=== PATIENT | female | born 1980 | race Caucasian/White ===

== ENCOUNTER 2019-07-19 08:56 | Outpatient (CLI) | payer MEDICARE, MEDICAID, SELFPAY | END 2019-07-19 08:57 | disposition home or self-care (01) | LOC: ONCMED 09:03 | PROVIDERS: Family Provider Nurse Practitioner Family; PCP Nurse Practitioner Family; Visit Provider Internal Medicine Hematology & Oncology | DX: Z45.2 Encounter for adjustment and management of vascular access device (principal) | CPT/HCPCS: 96523 ==

== ENCOUNTER 2019-08-16 08:56 | Outpatient (CLI) | payer MEDICARE, MEDICAID, SELFPAY | END 2019-08-16 08:57 | disposition home or self-care (01) | LOC: ONCMED 08:58 | PROVIDERS: Family Provider Nurse Practitioner Family; PCP Nurse Practitioner Family; Visit Provider Internal Medicine Hematology & Oncology | DX: Z45.2 Encounter for adjustment and management of vascular access device (principal) | CPT/HCPCS: 96523 ==

== ENCOUNTER → 2019-09-11 09:06 | Outpatient (BNVA) | payer MEDICARE, MEDICAID, SELFPAY | PROVIDERS: Family Provider Nurse Practitioner Family; PCP Nurse Practitioner Family; Visit Provider Internal Medicine Hematology & Oncology | DX: C50.411 Malignant neoplasm of upper-outer quadrant of right female breast (principal); D70.1 Agranulocytosis secondary to cancer chemotherapy; T45.1X5A Adverse effect of antineoplastic and immunosuppressive drugs, initial encounter | CPT/HCPCS: 80053; 85025 ==

== ENCOUNTER 2019-09-13 08:35 | Outpatient (CLI) | payer MEDICARE, MEDICAID, SELFPAY ==
--- NOTE | 2019-09-13 11:19 | ONC FU_ITS ---
Dr. Willingham follow up note Patient: Na Tse Unit #: [id number]: 1980 Dicatated By: Jorge Willingham M.D.Date of Visit:Sep 13, 2019 Onc Med Follow-up/Prog Note History of Present Illness: Ms Tse is a 38-year-old female with history of right breast inflammatory process underwent right nipple areolar complex excision [place] [address] Arevalo. She presented to her primary care physician in June with a breast mass on self-examination. It has been there for proximally a couple of months. An antibiotic was tried but she had no significant improvement. She was then referred to Dr. Arevalo. She states that the mass that had no pain or drainage. She did have ultrasound that showed a hypoechoic shadowing mass measuring a little under an inch in diameter. It was initially thought this might be infected sebaceous cyst. Dr. Arevalo did recommend doing a biopsy of the area. She underwent biopsy of the right breast mass on 11/03/2017. 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 It was then recommended that she undergo right breast Na did have right, simple mastectomy with sentinel lymph node biopsy on 11/17/2017. The pathology on the mastectomy reported infiltrating ductal carcinoma with the site of invasive component of 4 x 3 cm. Histological grade was 2 of 3 Donna score was 7 of 9. There is no significant DCIS component. Is reported that the margins were clear. Her Ki 6-7 analysis was 53% ER was positive HI was positive HER-2/zan by IHC was 1+ which was negative by IHC and over application by FISH. It was noted that the tumor was infiltrating papillary dermis and within dermal lymphatics. The 2 lymph nodes for senna lymph node biopsy was negative for any signs of cancer. 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 She also has a history of Sjorgen-Marina syndrome. Na was then referred to medical oncology for management of her breast cancer. we recommended that she pursue dose dense Adriamycin Cytoxan for 4 cycles followed by weekly Taxol for 12 weeks. She has had placement of a Port-A-Cath by Dr. Arevalo and had echocardiogram on 12/09/2017. The echo reports normal LV size and systolic function with no regional wall motion abnormalities. Her EF is estimated at 65%. She began her first cycle of Adriamycin Cytoxan on 01/09/2018. She completed 4 cycles of AC on 02/27/2018.and completed weekly taxol x12 On 06/15/2018 Started on tamoxifen 20 mg daily Underwent bilateral oophorectomy on 04/24/2019 and also discontinued tamoxifen week before. Started on Arimidex 1 mg daily on 05/24/2019 Came for follow-up, denies any specific complaints except ringing in left ear and postnasal discharge. Otherwise no fever or chills no nausea or vomiting no sore throat no diarrhea constipation occasionally hot flashes otherwise tolerating Arimidex well. Medications: Anastrozole 1 Tablet (of 1 mg) Oral daily, Calcium Tablet Oral, Cholecalciferol Tablet Oral, Diclofenac Sodium 2 - 4 g (of 1 %) Gel (jelly) Transdermal four times a day PRN, LORazepam 0.5 - 1 (1 mg) Tablet Oral four times a day PRN, Multivitamin Adult Tablet Oral, Vitamin E 1 Capsule Oral daily Allergies: No Known Allergies. Review of Systems: Review of Systems is not available for this patient. Vital Signs: Performed on Sep 13, 2019 08:49 Height - 61.00 in Weight - 152.4 lbs (HIGH) BSA - 1.68 sq.m BMI - 28.80 Temperature - 98.4 F Pulse - 96 /min Respiration - 18 /min BP - 116/80 mm(hg) O2 Sat - 97 % Pain - 3 Performance Status: 0 - Fully active, able to carry on all predisease activities without restrictions. (ECOG) Physical Examination: Respiratory - Lungs are clear to auscultation without rhonchi or wheezing, Cardiovascular - Regular rate and rhythm of heart, Extremities - no edema. Lab/Imaging: Test performed on Jun 21, 2019 08:54 FSH 169.9 mIU/mL LH 75.8 mIU/mL Test performed on Jun 19, 2019 08:54 Sodium 143 mmol/L Potassium 4.1 mmol/L Chloride 101 mmol/L CO2 26 mmol/L Anion Gap 20.1 BUN 11 mg/dL Creatinine 0.6 mg/dL Cr Clearance (Est) 131.6400 mL/min eGFR 112.5 mL/min Glucose 90 mg/dl Calcium 9.8 mg/dL Protein, Total 7.1 g/dL Albumin 5.4 g/dL Globulin 1.7 gm/dL Bilirubin, Total 0.4 mg/dL ALT (SGPT) 47 U/L AST (SGOT) 32 U/L Alkaline Phosphatase 78 U/L WBC 7.0 10 3/uL RBC 4.66 10 6/uL HGB 14.6 g/dl HCT 43.3 % MCV 93.0 fl MCH 31.5 pg MCHC 33.8 g/dl RDW 12.8 % Platelet Count 297 10 3/uL MPV 8.0 fl Neutrophils 5.1 10 3/cmm Lymphocytes 1.7 10 3/uL Monocytes 0.2 10 3/uL Neutrophil % 72.9 % Lymphocyte % 24.5 % Monocyte % 2.6 % Test performed on May 10, 2019 10:20 Eosinophils 0.1 10 3/uL Basophils 0.0 10 3/uL Eosinophil % 1.6 % Basophils % 0.6 % Impression: Status post right simple mastectomy, right sentinel axillary lymph node biopsy done on 11/17/2017 final pathology report showed 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 Fernandez radiation oncology. She has had a venous access device placed per Dr Arevalo ([facility] [place]) on 12/29/2017. Ms Tse began cycle of chemotherapy on 01/09/2018. She completed her fourth cycle of Adriamycin & cyclophosphamide on 02/27/2018. She was transitioned to weekly Taxol x 12 weeks which she completed on 06/15/18 . started on Tamoxifen 20 mg po qd on 06/22/18 Patient underwent bilateral oophorectomy on 04/24/2019 and tamoxifen was discontinued week before and return started on Arimidex 1 mg by mouth daily on 05/24/2019 Plan: Discussed patient regarding her labs white blood count 7.2 hemoglobin 14 crit 42.6 platelets 299,000 CMP within normal limits except calcium 10.9 Progesterone level 0.05, estrogen level 81.9, FSH 169.9, LH 75.8 next Clinically, patient is doing well with no signs symptoms suggestive of recurrence of disease, tolerating Arimidex well but with expected side effects. We'll continue to monitor and return to clinic in 3 months with CBC CMP while maintaining port on monthly basis.As far as ringing in left ear is concern, she was advised to do gargles and try [id number] Zyrtec and if no relief then consult ENT for evaluation and she was also advised to keep left ear dry and not to use Q-tips. Signed By: Jorge Willingham M.D. <<Signature on File>>
== END 2019-09-13 08:36 | disposition home or self-care (01) ==
LOC: ONCMED 08:38
PROVIDERS: Family Provider Nurse Practitioner Family; PCP Nurse Practitioner Family; Visit Provider Internal Medicine Hematology & Oncology
DX: C50.411 Malignant neoplasm of upper-outer quadrant of right female breast (principal); Z45.2 Encounter for adjustment and management of vascular access device; Q87.19 Other congenital malformation syndromes predominantly associated with short stature; Z17.0 Estrogen receptor positive status [ER+]; Z79.811 Long term (current) use of aromatase inhibitors; Z90.11 Acquired absence of right breast and nipple; Z92.21 Personal history of antineoplastic chemotherapy; Z90.722 Acquired absence of ovaries, bilateral
CPT/HCPCS: 96523; 99214

== ENCOUNTER 2019-10-11 08:24 | Outpatient (CLI) | payer MEDICARE, MEDICAID, SELFPAY | END 2019-10-11 08:25 | disposition home or self-care (01) | LOC: ONCMED 08:25 | PROVIDERS: Family Provider Nurse Practitioner Family; PCP Nurse Practitioner Family; Visit Provider Internal Medicine Hematology & Oncology | DX: Z45.2 Encounter for adjustment and management of vascular access device (principal) | CPT/HCPCS: 96523 ==

== ENCOUNTER 2019-11-15 08:20 | Outpatient (CLI) | payer MEDICARE, MEDICAID, SELFPAY | END 2019-11-15 08:21 | disposition home or self-care (01) | LOC: ONCMED 08:22 | PROVIDERS: PCP Nurse Practitioner Family; Visit Provider Internal Medicine Hematology & Oncology | DX: Z45.2 Encounter for adjustment and management of vascular access device (principal); C50.411 Malignant neoplasm of upper-outer quadrant of right female breast; D70.1 Agranulocytosis secondary to cancer chemotherapy | CPT/HCPCS: 96523 ==

== ENCOUNTER → 2019-12-18 08:23 | Outpatient (BNVA) | payer MEDICARE, MEDICAID, SELFPAY | PROVIDERS: PCP Nurse Practitioner Family; Visit Provider Internal Medicine Hematology & Oncology | DX: C50.411 Malignant neoplasm of upper-outer quadrant of right female breast (principal); D70.1 Agranulocytosis secondary to cancer chemotherapy; T45.1X5A Adverse effect of antineoplastic and immunosuppressive drugs, initial encounter; X58.XXXA Exposure to other specified factors, initial encounter | CPT/HCPCS: 80053; 85025 ==

== ENCOUNTER 2019-12-20 08:22 | Outpatient (CLI) | payer MEDICARE, MEDICAID, SELFPAY ==
--- NOTE | 2019-12-20 10:22 | ONC FU_ITS ---
Dr. Willingham follow up note Patient: Na Tse Unit #: [id number]: 1980 Dicatated By: Jorge Willingham M.D.Date of Visit:Dec 20, 2019 Onc Med Follow-up/Prog Note History of Present Illness: Ms Tse is a 39-year-old female with history of right breast inflammatory process underwent right nipple areolar complex excision in [address] Arevalo. She presented to her primary care physician in June with a breast mass on self-examination. It has been there for proximally a couple of months. An antibiotic was tried but she had no significant improvement. She was then referred to Dr. Areavlo. She states that the mass that had no pain or drainage. She did have ultrasound that showed a hypoechoic shadowing mass measuring a little under an inch in diameter. It was initially thought this might be infected sebaceous cyst. Dr. Arevalo did recommend doing a biopsy of the area. She underwent biopsy of the right breast mass on 11/03/2017. 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 It was then recommended that she undergo right breast Na did have right, simple mastectomy with sentinel lymph node biopsy on 11/17/2017. The pathology on the mastectomy reported infiltrating ductal carcinoma with the site of invasive component of 4 x 3 cm. Histological grade was 2 of 3 Donna score was 7 of 9. There is no significant DCIS component. Is reported that the margins were clear. Her Ki 6-7 analysis was 53% ER was positive MS was positive HER-2/zan by IHC was 1+ which was negative by IHC and over application by FISH. It was noted that the tumor was infiltrating papillary dermis and within dermal lymphatics. The 2 lymph nodes for senna lymph node biopsy was negative for any signs of cancer. 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 She also has a history of Sjorgen-Marina syndrome. Na was then referred to medical oncology for management of her breast cancer. we recommended that she pursue dose dense Adriamycin Cytoxan for 4 cycles followed by weekly Taxol for 12 weeks. She has had placement of a Port-A-Cath by Dr. Arevalo and had echocardiogram on 12/09/2017. The echo reports normal LV size and systolic function with no regional wall motion abnormalities. Her EF is estimated at 65%. She began her first cycle of Adriamycin Cytoxan on 01/09/2018. She completed 4 cycles of AC on 02/27/2018.and completed weekly taxol x12 On 06/15/2018 Started on tamoxifen 20 mg daily Underwent bilateral oophorectomy on 04/24/2019 and also discontinued tamoxifen week before. Started on Arimidex 1 mg daily on 05/24/2019 Came for follow-up, denies any specific complaints, left ear pain has resolved, as per mother she had excessive wax in her ear and otherwise no fever chills, no nausea or vomiting, no diarrhea or constipation, no jaundice, no abdominal pain, no new bony pains. Tolerating Arimidex/vitamin D/calcium well otherwise. Medications: Anastrozole 1 Tablet (of 1 mg) Oral daily, Calcium Tablet Oral, Cholecalciferol Tablet Oral, Claritin 1 Tablet (of 10 mg) Oral daily, LORazepam 0.5 - 1 (1 mg) Tablet Oral four times a day PRN, Multivitamin Adult Tablet Oral, Vitamin E 1 Capsule Oral daily Allergies: No Known Allergies. Review of Systems: Constitutional - Appetite is good and weight is stable. No fever, chills, or night sweats. Energy level is fair. Positive for hot flashes, ENMT - No sinus congestion/drainage. No mouth sores. No sore throat or difficulty swallowing, Hematologic/Lymphatic - No abnormal bruising or bleeding, Respiratory - No shortness of breath. No cough. No pleuritic pain or hemoptysis, Cardiovascular - No angina pain. No palpitations, Gastrointestinal - No nausea or vomiting. No heartburn or acid reflux. No diarrhea or constipation. No blood in the stool or black stools, Genitourinary (F) - No dysuria or hematuria. No urinary frequency. No urgency. Occasional incontinence, Musculoskeletal - No joint or bone pain, Neurologic - Occasional headaches. No numbness/paresthesias or other focal neurologic symptoms, Psychiatric - No anxiety or depression. No insomnia. Vital Signs: Performed on Dec 20, 2019 08:29 Height - 61.00 in Weight - 156.4 lbs (HIGH) BSA - 1.70 sq.m BMI - 29.55 Temperature - 99.2 F (HIGH) Pulse - 88 /min Respiration - 18 /min BP - 125/81 mm(hg) O2 Sat - 99 % Pain - 0 Performance Status: 0 - Fully active, able to carry on all predisease activities without restrictions. (ECOG) Physical Examination: Respiratory - Lungs are clear to auscultation, Cardiovascular - Regular rate and rhythm of heart, Extremities - No edema or rash. Lab/Imaging: Test performed on Dec 18, 2019 08:23 Glucose 91 mg/dL BUN 12 mg/dL Creatinine 0.5 mg/dL Cr Clearance (Est) 156.43 mL/min Sodium 141 mmol/L Potassium 4.0 mmol/L Chloride 101 mmol/L CO2 25 mmol/L Calcium 10.9 mg/dL Protein, Total 7.3 g/dL Albumin 4.4 g/dL Globulin 2.9 g/dL Bilirubin, Total 0.2 mg/dL Alkaline Phosphatase 81 IU/L AST (SGOT) 22 IU/L ALT (SGPT) 28 IU/L WBC 8.5 10^9/L RBC 4.43 10^12/L HGB 13.7 g/dL HCT 41.5 % MCV 93.7 fl MCH 30.9 pg MCHC 33.0 g/dL RDW 12.4 % Platelet Count 318 10^9/L MPV 11.6 fL Neutrophils (Gran) 5.2 10^9/L Lymphocytes 2.2 10^9/L Monocytes 0.6 10^9/L Eosinophils 0.4 10^9/L Basophils 0.1 10^9/L Manual Lymphocytes 26.1 % Manual Monocytes 6.8 % Manual Eosinophils 4.2 % Manual Basophils 1.2 % Impression: Status post right simple mastectomy, right sentinel axillary lymph node biopsy done on 11/17/2017 final pathology report showed 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 Fernandez radiation oncology. She has had a venous access device placed [place] Dr Arevalo [place] [place] on 12/29/2017. Ms Tse began cycle of chemotherapy on 01/09/2018. She completed her fourth cycle of Adriamycin & cyclophosphamide on 02/27/2018. She was transitioned to weekly Taxol x 12 weeks which she completed on 06/15/18 . started on Tamoxifen 20 mg po qd on 06/22/18 Patient underwent bilateral oophorectomy on 04/24/2019 and tamoxifen was discontinued week before and return started on Arimidex 1 mg by mouth daily on 05/24/2019 Plan: Discussed with patient regarding her labs white blood count 8.5 hemoglobin 13.7 crit 41.5 platelets 318,000 CMP within normal limits Clinically, patient is doing well, with no signs symptoms suggestive of recurrence of disease, lab work-up is within normal range and she is tolerating adjuvant therapy with Arimidex well. We will continue with same and now she will return to clinic in 6 months with CBC CMP and with follow-up mammogram, patient said she is following her surgeon on a as needed basis. Signed By: Jorge Willingham M.D. <<Signature on File>>
== END 2019-12-20 08:23 | disposition home or self-care (01) ==
LOC: ONCMED 08:25
PROVIDERS: PCP Nurse Practitioner Family; Visit Provider Internal Medicine Hematology & Oncology
DX: C50.411 Malignant neoplasm of upper-outer quadrant of right female breast (principal); Z17.0 Estrogen receptor positive status [ER+]; D70.1 Agranulocytosis secondary to cancer chemotherapy; Q87.19 Other congenital malformation syndromes predominantly associated with short stature; Z79.818 Long term (current) use of other agents affecting estrogen receptors and estrogen levels; Z45.2 Encounter for adjustment and management of vascular access device
CPT/HCPCS: 96523; 99214

== ENCOUNTER 2020-01-17 08:37 | Outpatient (CLI) | payer MEDICARE, MEDICAID, SELFPAY | END 2020-01-17 08:38 | disposition home or self-care (01) | LOC: ONCMED 08:41 | PROVIDERS: PCP Nurse Practitioner Family; Visit Provider Nurse Practitioner | DX: Z45.2 Encounter for adjustment and management of vascular access device (principal); C50.411 Malignant neoplasm of upper-outer quadrant of right female breast; Z17.0 Estrogen receptor positive status [ER+]; D70.1 Agranulocytosis secondary to cancer chemotherapy; T45.1X5A Adverse effect of antineoplastic and immunosuppressive drugs, initial encounter | CPT/HCPCS: 96523 ==

== ENCOUNTER 2020-02-21 08:22 | Outpatient (CLI) | payer MEDICARE, MEDICAID, SELFPAY | END 2020-02-21 08:23 | disposition home or self-care (01) | LOC: ONCMED 08:24 | PROVIDERS: Visit Provider Nurse Practitioner | DX: Z45.2 Encounter for adjustment and management of vascular access device (principal) | CPT/HCPCS: 96523 ==

== ENCOUNTER 2020-02-25 08:13 | Outpatient (CLI) | payer MEDICARE, MEDICAID, SELFPAY ==
--- NOTE | 2020-02-25 08:22 | MM_ITS ---
WS: [id number] LEFT DIGITAL MAMMOGRAPHY WITH CAD CLINICAL INFORMATION: HX RT BREAST C, HISTORY OF RIGHT MASTECTOMY COMPARISON: TECHNIQUE: 4 views of the left breast were obtained. FINDINGS: The left breast is composed of heterogeneous fibroglandular density tissue, which can limit the detec tion of small underlying mass lesions. A few tiny punctate calcifications. No suspicious focal mass, asymmetry, calcifications, or architectural distortion. No evidence of mia gnancy. MM/[place] [id number] IMPRESSION: BI-RADS: 2-Benign FOLLOW UP: 1 Year Follow-up Recommend return to annual diagnostic mammography.
== END 2020-02-25 08:14 | disposition home or self-care (01) ==
LOC: RADSHAW 08:20
PROVIDERS: PCP Nurse Practitioner Family; Visit Provider Internal Medicine Hematology & Oncology
DX: Z85.3 Personal history of malignant neoplasm of breast (principal); Z90.11 Acquired absence of right breast and nipple
CPT/HCPCS: 77065

== ENCOUNTER 2020-03-20 08:35 | Outpatient (CLI) | payer MEDICARE, MEDICAID, SELFPAY | END 2020-03-20 08:36 | disposition home or self-care (01) | LOC: ONCMED 08:37 | PROVIDERS: PCP Nurse Practitioner Family; Visit Provider Nurse Practitioner | DX: Z45.2 Encounter for adjustment and management of vascular access device (principal) | CPT/HCPCS: 96523 ==

== ENCOUNTER 2020-04-24 06:04 | Outpatient (CLI) | payer MEDICARE, MEDICAID, SELFPAY | END 2020-04-24 06:05 | disposition home or self-care (01) | LOC: ONCMED 06:06 | PROVIDERS: PCP Nurse Practitioner Family; Visit Provider Nurse Practitioner | DX: Z45.2 Encounter for adjustment and management of vascular access device (principal) | CPT/HCPCS: 96523 ==

== ENCOUNTER 2020-05-22 05:59 | Outpatient (CLI) | payer MEDICARE, MEDICAID, SELFPAY | END 2020-05-22 06:00 | disposition home or self-care (01) | LOC: ONCMED 06:01 | PROVIDERS: PCP Nurse Practitioner Family; Visit Provider Nurse Practitioner | DX: Z45.2 Encounter for adjustment and management of vascular access device (principal) | CPT/HCPCS: 96523 ==

== ENCOUNTER → 2020-06-16 08:29 | Outpatient (BNVA) | payer MEDICARE, MEDICAID, SELFPAY | PROVIDERS: PCP Nurse Practitioner Family; Visit Provider Internal Medicine Hematology & Oncology | DX: D70.1 Agranulocytosis secondary to cancer chemotherapy (principal); T45.1X5A Adverse effect of antineoplastic and immunosuppressive drugs, initial encounter; C50.411 Malignant neoplasm of upper-outer quadrant of right female breast | CPT/HCPCS: 80053; 85025 ==

== ENCOUNTER 2020-06-19 08:26 | Outpatient (CLI) | payer MEDICARE, MEDICAID, SELFPAY ==
--- NOTE | 2020-06-19 09:42 | ONC FU_ITS ---
Dr. Willingham follow up note Patient: Na Tse Unit #: [id number]: 1980 Dicatated By: Jorge Willingham M.D.Date of Visit:Jun 19, 2020 Onc Med Follow-up/Prog Note History of Present Illness: Ms Tse is a 39-year-old female with history of right breast inflammatory process underwent right nipple areolar complex excision [place] [address] Arevalo. She presented to her primary care physician in June with a breast mass on self-examination. It has been there for proximally a couple of months. An antibiotic was tried but she had no significant improvement. She was then referred to Dr. Arevalo. She states that the mass that had no pain or drainage. She did have ultrasound that showed a hypoechoic shadowing mass measuring a little under an inch in diameter. It was initially thought this might be infected sebaceous cyst. Dr. Arevalo did recommend doing a biopsy of the area. She underwent biopsy of the right breast mass on 11/03/2017. 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 It was then recommended that she undergo right breast Na did have right, simple mastectomy with sentinel lymph node biopsy on 11/17/2017. The pathology on the mastectomy reported infiltrating ductal carcinoma with the site of invasive component of 4 x 3 cm. Histological grade was 2 of 3 Donna score was 7 of 9. There is no significant DCIS component. Is reported that the margins were clear. Her Ki 6-7 analysis was 53% ER was positive [place] was positive HER-2/zan by IHC was 1+ which was negative by IHC and over application by FISH. It was noted that the tumor was infiltrating papillary dermis and within dermal lymphatics. The 2 lymph nodes for senna lymph node biopsy was negative for any signs of cancer. 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 She also has a history of Sjorgen-Marina syndrome. Na was then referred to medical oncology for management of her breast cancer. we recommended that she pursue dose dense Adriamycin Cytoxan for 4 cycles followed by weekly Taxol for 12 weeks. She has had placement of a Port-A-Cath by Dr. Arevalo and had echocardiogram on 12/09/2017. The echo reports normal LV size and systolic function with no regional wall motion abnormalities. Her EF is estimated at 65%. She began her first cycle of Adriamycin Cytoxan on 01/09/2018. She completed 4 cycles of AC on 02/27/2018.and completed weekly taxol x12 On 06/15/2018 Started on tamoxifen 20 mg daily Underwent bilateral oophorectomy on 04/24/2019 and also discontinued tamoxifen week before. Started on Arimidex 1 mg daily on 05/24/2019 Follow-up mammogram done on February 25, 2020 was BI-RADS 2, benign Came for follow-up, denies any specific complaint except discomfort in anterior chest wall and off and on lower back pain, which is somewhat new otherwise denies any trauma to her back, patient use walking crutches. But no headaches no fever chills, no nausea or vomiting, no diarrhea or constipation tolerating Arimidex/vitamin D and calcium well Medications: Anastrozole 1 Tablet (of 1 mg) Oral daily, Calcium Tablet Oral, Cholecalciferol Tablet Oral, Claritin 1 Tablet (of 10 mg) Oral daily, LORazepam 0.5 - 1 (1 mg) Tablet Oral four times a day PRN, Multivitamin Adult Tablet Oral, Vitamin E 1 Capsule Oral daily Allergies: No Known Allergies. Review of Systems: Constitutional - Appetite is good and weight is stable. No fever, chills, or night sweats. Energy level is fair. Positive for hot flashes, ENMT - No sinus congestion/drainage. No mouth sores. No sore throat or difficulty swallowing, Hematologic/Lymphatic - No abnormal bruising or bleeding, Respiratory - No shortness of breath. No cough. No pleuritic pain or hemoptysis, Cardiovascular - No angina pain. No palpitations, Gastrointestinal - No nausea or vomiting. No heartburn or acid reflux. No diarrhea or constipation. No blood in the stool or black stools, Genitourinary (F) - No dysuria or hematuria. No urinary frequency. No urgency. Occasional incontinence, Musculoskeletal - Positive for joint or bone pain, Neurologic - Occasional headaches. No numbness/paresthesias or other focal neurologic symptoms, Psychiatric - No anxiety or depression. No insomnia. Vital Signs: Performed on Jun 19, 2020 09:04 Height - 61.00 in Weight - 157.4 lbs (HIGH) BSA - 1.71 sq.m BMI - 29.74 Temperature - 98.2 F (LOW) Pulse - 84 /min Respiration - 20 /min BP - 125/76 mm(hg) O2 Sat - 100 % Pain - 0 Performance Status: 1 - No physically strenuous activity, but ambulatory and able to carry out light or sedentary work (e.g. office work, light house work). (ECOG) Physical Examination: Respiratory - Lungs are clear to auscultation,Chest exam shows no focal skin changes in anterior chest wall no focal pain/tenderness in the left arm Cardiovascular - Regular rate and rhythm of heart, Gastrointestinal - Soft, bowel sounds present, Extremities - No visible edema or rash. Lab/Imaging: Test performed on Jun 16, 2020 15:01 Glucose 89 mg/dL BUN 11 mg/dL Creatinine 0.6 mg/dL Cr Clearance (Est) 130.36 mL/min Sodium 144 mmol/L Potassium 4.3 mmol/L Chloride 105 mmol/L CO2 26 mmol/L Calcium 9.7 mg/dL Protein, Total 7.3 g/dL Albumin 3.9 g/dL Globulin 2.5 g/dL Bilirubin, Total 0.3 mg/dL Alkaline Phosphatase 87 IU/L AST (SGOT) 19 IU/L ALT (SGPT) 26 IU/L WBC 7.3 10^9/L RBC 4.67 10^12/L HGB 14.0 g/dL HCT 43.4 % MCV 92.9 fl MCH 30.0 pg MCHC 32.3 g/dL RDW 12.3 % Platelet Count 345 10^9/L Neutrophils (Gran) 4.6209 10^9/L Lymphocytes 1.9491 10^9/L Monocytes 0.4818 10^9/L Eosinophils 0.1679 10^9/L Basophils 0.073 10^9/L Impression: Status post right simple mastectomy, right sentinel axillary lymph node biopsy done on 11/17/2017 final pathology report showed 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 Fernandez radiation oncology. She has had a venous access [place] [place]. Ms Tse began cycle of chemotherapy on 01/09/2018. She completed her fourth cycle of Adriamycin & cyclophosphamide on 02/27/2018. She was transitioned to weekly Taxol x 12 weeks which she completed on 06/15/18 . started on Tamoxifen 20 mg po qd on 06/22/18 Patient underwent bilateral oophorectomy on 04/24/2019 and tamoxifen was discontinued week before and return started on Arimidex 1 mg by mouth daily on 05/24/2019 Plan: Discussed with patient regarding her labs white blood count 7.3 hemoglobin 14 hematocrit 43.4 platelets 345,000 CMP within normal limits, Follow-up mammogram was benign Clinically, patient is doing reasonably well with no new signs symptom except new anterior chest wall pain and off and on lower back pain, etiology unclear could be due to musculoskeletal and postural as patient uses crutches for walking or or bone mets, at this point will get plain chest x-ray and also bone scan, as 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 We will flush the Port-A-Cath today and then she will return to clinic in 1 month for port flush and with bone scan and chest x-ray. In the meantime continue with Arimidex/vitamin D and calcium supplements. Signed By: Jorge Willingham M.D. <<Signature on File>>
== END 2020-06-19 08:27 | disposition home or self-care (01) ==
LOC: ONCMED 08:29
PROVIDERS: PCP Nurse Practitioner Family; Visit Provider Internal Medicine Hematology & Oncology
DX: C50.411 Malignant neoplasm of upper-outer quadrant of right female breast (principal); Z17.0 Estrogen receptor positive status [ER+]; M54.5 Low back pain; R07.89 Other chest pain; Q87.19 Other congenital malformation syndromes predominantly associated with short stature; F70 Mild intellectual disabilities; Z45.2 Encounter for adjustment and management of vascular access device; Z79.811 Long term (current) use of aromatase inhibitors; Z90.11 Acquired absence of right breast and nipple; Z95.828 Presence of other vascular implants and grafts
CPT/HCPCS: 96523; 99214

== ENCOUNTER 2020-07-16 08:54 | Outpatient (CLI) | payer MEDICARE, MEDICAID, SELFPAY ==
--- NOTE | 2020-07-16 09:02 | XR_ITS ---
WS: [id number] PA and lateral chest, 07/16/2020 Clinical Data: PLEURITIC CHEST PAIN Comparison: None. Findings: No nodules, masses or effusions are seen. The left infusion port ends in the superior vena cava. The heart is normal. The pulmonary vascularity is not increased. No pneumonia or pneumothorax i s noted. The right breast is absent. XR/XR chest 2V* [id number] Impression: Negative chest.
--- NOTE | 2020-07-16 09:02 | NM_ITS ---
WS: [id number] NUCLEAR MEDICINE WHOLE BODY BONE SCAN HISTORY: RE STAGING EVALUATION/HX OF BREAST CANCER COMPARISON: None available. TECHNIQUE: The patient was injected with 25.3 mCi of Technetium 99m HDP and serial whole-body scintig bren have been performed with anterior and posterior images. Focal intermediate uptake involving the LEFT facet joint in the cervical spine near the C5 level. Focal intermediate uptake in the upper sternal body. Very mild increased uptake within the lumbar spine. This is probably the L2 and L3 vertebral bodies. Mild uptake at the patellofemoral junctions and at the AC joints. Normal soft tissue uptake. Normal uptake in the kidneys. NM/NM bone scan whole body* [id number] IMPRESSION: 1. Highly suspicious for metastatic disease to the sternal body. 2. Focal areas increased uptake in the lumbar spine at L2 and L3 in the cervi nick spine on the LEFT at C5-6 are probably all degenerative and related to face t joint arthritis and spondylosis.
--- NOTE | 2020-07-16 11:17 | XR_ITS ---
WS: [id number] CERVICAL SPINE 3 VIEWS HISTORY: BONE SCAN COMPARISON COMPARISON: Bone scan same day. Limited evaluation of the cervical spine due to patient's body habitus. Facet joint arthritis is noted in the LEFT cervical spine. Osteophyte and facet joint narrowing is mo st significant at what is probably C5-6. This corresponds to the findings on the recent bone scan. No osteoblastic or osteolytic disease. Soft tissues are normal. XR/XR cervical spine 3V* [id number] IMPRESSION: Degenerative facet joint arthritis on the LEFT at C5-6.
--- NOTE | 2020-07-16 11:17 | XR_ITS ---
WS: [id number] LUMBAR SPINE: 3 VIEWS TECHNIQUE: AP, lateral and L5-S1 spot. HISTORY: BONE SCAN COMPARISON COMPARISON: Bone scan same day. Mild LEFT convex curvature the lumbar spine. Adjacent sclerotic changes in the anterior L2 and L3 greg tebral bodies with disc space narrowing. These changes correspond to the increased uptake on the bone scan are probably degenerative. No osteolytic disease. XR/XR lumbar spine 2-3V* [id number] IMPRESSION: Sclerotic changes in the anterior adjacent L2 and L3 vertebral bodies probably degenerative related to disc disease and spondylosis.
== END 2020-07-16 08:55 | disposition home or self-care (01) ==
LOC: RAD 08:57
PROVIDERS: PCP Nurse Practitioner Family; Visit Provider Internal Medicine Hematology & Oncology
DX: R07.9 Chest pain, unspecified (principal); C50.411 Malignant neoplasm of upper-outer quadrant of right female breast; M47.812 Spondylosis without myelopathy or radiculopathy, cervical region
CPT/HCPCS: 71046; 72040; 72100; 78306; A9561

== ENCOUNTER 2020-07-24 09:09 | Outpatient (CLI) | payer MEDICARE, MEDICAID, SELFPAY ==
--- NOTE | 2020-09-12 10:00 | ONC FU_ITS ---
Dr. Willingham follow up note Patient: Na Tse Unit #: [id number]: 1980 Dicatated By: Jorge Willingham M.D.Date of Visit:Jul 24, 2020 Onc Med Follow-up/Prog Note History of Present Illness: Ms Tse is a 39-year-old female with history of right breast inflammatory process underwent right nipple areolar complex excision [place] [address] Arevalo. She presented to her primary care physician in June with a breast mass on self-examination. It has been there for proximally a couple of months. An antibiotic was tried but she had no significant improvement. She was then referred to Dr. Arevalo. She states that the mass that had no pain or drainage. She did have ultrasound that showed a hypoechoic shadowing mass measuring a little under an inch in diameter. It was initially thought this might be infected sebaceous cyst. Dr. Arevalo did recommend doing a biopsy of the area. She underwent biopsy of the right breast mass on 11/03/2017. 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 It was then recommended that she undergo right breast Na did have right, simple mastectomy with sentinel lymph node biopsy on 11/17/2017. The pathology on the mastectomy reported infiltrating ductal carcinoma with the site of invasive component of 4 x 3 cm. Histological grade was 2 of 3 Donna score was 7 of 9. There is no significant DCIS component. Is reported that the margins were clear. Her Ki 6-7 analysis was 53% ER was positive ID was positive HER-2/zan by IHC was 1+ which was negative by IHC and over application by FISH. It was noted that the tumor was infiltrating papillary dermis and within dermal lymphatics. The 2 lymph nodes for senna lymph node biopsy was negative for any signs of cancer. 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 She also has a history of Sjorgen-Marina syndrome. Na was then referred to medical oncology for management of her breast cancer. we recommended that she pursue dose dense Adriamycin Cytoxan for 4 cycles followed by weekly Taxol for 12 weeks. She has had placement of a Port-A-Cath by Dr. Arevalo and had echocardiogram on 12/09/2017. The echo reports normal LV size and systolic function with no regional wall motion abnormalities. Her EF is estimated at 65%. She began her first cycle of Adriamycin Cytoxan on 01/09/2018. She completed 4 cycles of AC on 02/27/2018.and completed weekly taxol x12 On 06/15/2018 Started on tamoxifen 20 mg daily Underwent bilateral oophorectomy on 04/24/2019 and also discontinued tamoxifen week before. Started on Arimidex 1 mg daily on 05/24/2019 Follow-up mammogram done on February 25, 2020 was BI-RADS 2, benign Patient was complaining of neck , lower back and anterior chest wall pain so bone scan done on July 16, 2020 which showed focal areas of increased uptake in the lumbar spine at L2 and L3, and the cervical spine on the left at C5-6 are probably all degenerative and related to facet joint arthritis and spondylosis and plain x-ray cervical spine done on July 16, 2020 when compared with a bone scan showed degenerative facet joint arthritis on the left at L5-6 and plain x-ray lumbar spine done on same date when compared with bone scan shows mild left convex curvature at lumbar spine changes consistent with probably degenerative, no osteolytic disease seen. But focal intermediate uptake in the upper sternal body, highly suspicious for metastatic disease so patient had chest x-ray done on July 16, 2020 which showed sclerotic changes in the anterior adjacent L2 and L3 vertebral body probably degenerative related but no abnormality seen in the sternum as per discussion with Dr. Gaston, radiologist Came for follow-up, denies any specific complaint except very emotional as her grandpa has COVID-19 and she is worried about him., Patient is mildly mentally challenged her still alert and oriented and further information available from the mother, as per mother she is less anxious with antianxiety medication she is on. And now anterior chest pain has resolved and mild to moderate discomfort in her lower back, which is chronic. Denies any new bony pain denies any nausea or vomiting denies any fever chills denies any weight loss, appetite is good. Medications: Anastrozole 1 Tablet (of 1 mg) Oral daily, Calcium Tablet Oral, Cholecalciferol Tablet Oral, Claritin 1 Tablet (of 10 mg) Oral daily, LORazepam 0.5 - 1 (1 mg) Tablet Oral four times a day PRN, Multivitamin Adult Tablet Oral, Vitamin E 1 Capsule Oral daily Allergies: No Known Allergies. Review of Systems: Constitutional - Appetite is good and weight is stable. No fever, chills, or night sweats. Energy level is fair. Positive for hot flashes, ENMT - No sinus congestion/drainage. No mouth sores. No sore throat or difficulty swallowing, Hematologic/Lymphatic - No abnormal bruising or bleeding, Respiratory - No shortness of breath. No cough. No pleuritic pain or hemoptysis, Cardiovascular - No angina pain. No palpitations, Gastrointestinal - No nausea or vomiting. No heartburn or acid reflux. No diarrhea or constipation. No blood in the stool or black stools, Genitourinary (F) - No dysuria or hematuria. No urinary frequency. No urgency. Occasional incontinence, Musculoskeletal - Positive for joint or bone pain, Neurologic - Occasional headaches. No numbness/paresthesias or other focal neurologic symptoms, Psychiatric - No anxiety or depression. No insomnia. Vital Signs: Performed on Jul 24, 2020 10:43 Height - 61.00 in Weight - 158.6 lbs (HIGH) BSA - 1.71 sq.m BMI - 29.97 Temperature - 98.6 F Pulse - 93 /min Respiration - 18 /min BP - 140/81 mm(hg) O2 Sat - 100 % Pain - 0 Performance Status: 2 - Ambulatory/capable of all self-care, unable to perform any work activities. Up and about more than 50% of waking hours. (ECOG) Physical Examination: Respiratory - Lungs are clear to auscultation, Cardiovascular - Regular rate and rhythm of heart, Gastrointestinal - Soft, bowel sounds present, Extremities - No edema or rash. Lab/Imaging: Test performed on Jun 16, 2020 15:01 Glucose 89 mg/dL BUN 11 mg/dL Creatinine 0.6 mg/dL Cr Clearance (Est) 130.36 mL/min Sodium 144 mmol/L Potassium 4.3 mmol/L Chloride 105 mmol/L CO2 26 mmol/L Calcium 9.7 mg/dL Protein, Total 7.3 g/dL Albumin 3.9 g/dL Globulin 2.5 g/dL Bilirubin, Total 0.3 mg/dL Alkaline Phosphatase 87 IU/L AST (SGOT) 19 IU/L ALT (SGPT) 26 IU/L WBC 7.3 10^9/L RBC 4.67 10^12/L HGB 14.0 g/dL HCT 43.4 % MCV 92.9 fl MCH 30.0 pg MCHC 32.3 g/dL RDW 12.3 % Platelet Count 345 10^9/L Neutrophils (Gran) 4.6209 10^9/L Lymphocytes 1.9491 10^9/L Monocytes 0.4818 10^9/L Eosinophils 0.1679 10^9/L Basophils 0.073 10^9/L Impression: Status post right simple mastectomy, right sentinel axillary lymph node biopsy done on 11/17/2017 final pathology report showed 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 Fernandez radiation oncology. She has had a venous access device placed per Dr Arevalo ([facility] [place]) on 12/29/2017. Ms Tse began cycle of chemotherapy on 01/09/2018. She completed her fourth cycle of Adriamycin & cyclophosphamide on 02/27/2018. She was transitioned to weekly Taxol x 12 weeks which she completed on 06/15/18 . started on Tamoxifen 20 mg po qd on 06/22/18 Patient underwent bilateral oophorectomy on 04/24/2019 and tamoxifen was discontinued week before and return started on Arimidex 1 mg by mouth daily on 05/24/2019 Plan: Discussed with patient regarding her bone scan hand plain x-ray of C-spine and lumbar spine and chest x-ray findings which showed degenerative changes in C-spine and lumbar spine whereas there was a concern regarding upper sternal uptake on bone scan but no obvious changes seen on chest x-ray, as per discussion with Dr. Gaston, radiologist, it could be degenerative but recommended follow-up bone scan in 2 months along with plain x-ray sternum, if it shows any abnormality further evaluation with CT scan of sternum. Clinically, patient is feeling better anterior chest wall pain has resolved still has mild discomfort/pain in the neck and lumbar area, based on bone scan findings it could be due to degenerative disease., We will continue with Arimidex/vitamin D/calcium supplement and then she will continue with monthly port maintenance and we will see her back in 2 months with a bone scan and x-ray sternum and with CBC CMP. As far as anxiety/emotional condition is concerned, will continue with lorazepam and patient was reassured. Signed By: Jorge Willingham M.D. <<Signature on File>>
== END 2020-07-24 09:10 | disposition home or self-care (01) ==
PROVIDERS: PCP Nurse Practitioner Family; Visit Provider Internal Medicine Hematology & Oncology
DX: C50.411 Malignant neoplasm of upper-outer quadrant of right female breast (principal); Z17.0 Estrogen receptor positive status [ER+]; R94.8 Abnormal results of function studies of other organs and systems; Q87.19 Other congenital malformation syndromes predominantly associated with short stature; F41.9 Anxiety disorder, unspecified; Z79.811 Long term (current) use of aromatase inhibitors
CPT/HCPCS: 96523; 99214

== ENCOUNTER 2020-07-29 09:36 | Outpatient (CLI) | payer MEDICARE, MEDICAID, SELFPAY ==
--- NOTE | 2020-07-29 09:46 | XRR_ITS ---
PROCEDURE INFORMATION: Exam: XR Chest, 2 Views Exam date and time: 07/29/2020 9:53 AM Age: 39 years old Clinical indication: Condition or disease; Other: Follow up-breast cancer/attn: To sternum; Prior surgery; Surgery type: RT breast, port TECHNIQUE: Imaging protocol: XR of the chest Views: 2 views. COMPARISON: CR XR chest 2V* [id number] 07/16/2020 9:26 AM FINDINGS: Lungs: Lungs are well aerated without a focal area of consolidation. Pleural space: Unremarkable. No pleural effusion. No pneumothorax. Heart/Mediastinum: Unremarkable. No cardiomegaly. Vasculature: Chest port via the left subclavian approach with the tip overlying the superior vena cava. Bones/joints: Unremarkable. XR/XR chest 2V* [id number] IMPRESSION: Lungs are well aerated without a focal area of consolidation.
== END 2020-07-29 09:37 | disposition home or self-care (01) ==
LOC: RAD 09:40
PROVIDERS: PCP Nurse Practitioner Family; Visit Provider Internal Medicine Hematology & Oncology
DX: C50.411 Malignant neoplasm of upper-outer quadrant of right female breast (principal)
CPT/HCPCS: 71046

== ENCOUNTER 2020-09-02 09:27 | Outpatient (CLI) | payer MEDICARE, MEDICAID, SELFPAY | END 2020-09-02 09:28 | disposition home or self-care (01) | LOC: ONCMED 09:29 | PROVIDERS: PCP Nurse Practitioner Family; Visit Provider Internal Medicine Hematology & Oncology | DX: Z45.2 Encounter for adjustment and management of vascular access device (principal) | CPT/HCPCS: 96523 ==

== ENCOUNTER 2020-09-15 09:19 | Outpatient (CLI) | payer MEDICARE, MEDICAID, SELFPAY ==
--- NOTE | 2020-09-15 09:31 | NM_ITS ---
WS: [id number] NUCLEAR MEDICINE BONE SCAN Radiopharmaceutical: 26.0 Tc-99m MDP mCi IV Injection site: Right hand Postinjection imaging delay: 1 hr CLINICAL INFORMATION: RESTAGING EVALUATION/HX OF CANCER/ABNORMAL FINDINGS COMPARISON: July 16, 2020 FINDINGS: Bone lesions: Again seen is focal uptake in the upper sternum unchanged compared to previous. Stable focal uptake involving the left C5 facet is unchanged. A few patchy areas of uptake in the lumbar spi ne are unchanged and likely degenerative. Soft tissue contours: Normal. Kidneys: Normal. Other findings: Degenerative type uptake involving both AC joints and patellofemoral articulations. NM/NM bone scan whole body* [id number] IMPRESSION: 1. Focal uptake at the sternomanubrial junction is unchanged compared to previ ous and indeterminant. 2. Punctate focus of activity involving the left approximately C5 facet unchan ged likely degenerative. 3. Degenerative uptake in the lower lumbar spine. 4. Overall no significant changes compared to previous.
--- NOTE | 2020-09-15 09:31 | XRR_ITS ---
PROCEDURE INFORMATION: Exam: XR Chest Exam date and time: 09/15/2020 10:05 AM Age: 40 years old Clinical indication: Condition or disease; Other: Breast cancer; Prior surgery; Surgery type: Mastectomy; Additional info: Follow up/special attn: Sternum/breast cancer TECHNIQUE: Imaging protocol: XR of the chest Views: Frontal and lateral upright views. COMPARISON: CR XR chest 2V* [id number] 07/29/2020 10:01 AM FINDINGS: Tubes, catheters and devices: The left subclavian venous portacatheter tip is in the mid SVC. Lungs: The lungs are clear bilaterally. The pulmonary vasculature is normal. Pleural spaces: No pleural effusion. No pneumothorax. Heart/Mediastinum: The heart is normal in size and contour. Mediastinum: Stable. Bones/joints: Stable. XR/XR chest 2V* [id number] IMPRESSION: No acute cardiopulmonary abnormality identified.
== END 2020-09-15 09:20 | disposition home or self-care (01) ==
LOC: RAD 09:24
PROVIDERS: PCP Nurse Practitioner Family; Visit Provider Internal Medicine Hematology & Oncology
DX: C50.411 Malignant neoplasm of upper-outer quadrant of right female breast (principal)
CPT/HCPCS: 71046; 78306; A9561

== ENCOUNTER → 2020-09-24 09:12 | Outpatient (BNVA) | payer MEDICARE, MEDICAID, SELFPAY | PROVIDERS: PCP Nurse Practitioner Family; Visit Provider Nurse Practitioner | DX: D70.1 Agranulocytosis secondary to cancer chemotherapy (principal); T45.1X5A Adverse effect of antineoplastic and immunosuppressive drugs, initial encounter; C50.411 Malignant neoplasm of upper-outer quadrant of right female breast | CPT/HCPCS: 80053; 85025 ==

== ENCOUNTER 2020-09-25 09:21 | Outpatient (CLI) | payer MEDICARE, MEDICAID, SELFPAY ==
--- NOTE | 2020-09-26 11:39 | ONC FU_ITS ---
Dr. Willingham follow up note Patient: Na Tse Unit #: [id number]: 1980 Dicatated By: Jorge Willingham M.D.Date of Visit:Sep 25, 2020 Onc Med Follow-up/Prog Note History of Present Illness: Ms Tse is a 40-year-old female with history of right breast inflammatory process underwent right nipple areolar complex excision [place] [address] Arevalo. She presented to her primary care physician in June with a breast mass on self-examination. It has been there for proximally a couple of months. An antibiotic was tried but she had no significant improvement. She was then referred to Dr. Arevalo. She states that the mass that had no pain or drainage. She did have ultrasound that showed a hypoechoic shadowing mass measuring a little under an inch in diameter. It was initially thought this might be infected sebaceous cyst. Dr. Arevalo did recommend doing a biopsy of the area. She underwent biopsy of the right breast mass on 11/03/2017. 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 It was then recommended that she undergo right breast Na did have right, simple mastectomy with sentinel lymph node biopsy on 11/17/2017. The pathology on the mastectomy reported infiltrating ductal carcinoma with the site of invasive component of 4 x 3 cm. Histological grade was 2 of 3 Donna score was 7 of 9. There is no significant DCIS component. Is reported that the margins were clear. Her Ki 6-7 analysis was 53% ER was positive WA was positive HER-2/zan by IHC was 1+ which was negative by IHC and over application by FISH. It was noted that the tumor was infiltrating papillary dermis and within dermal lymphatics. The 2 lymph nodes for senna lymph node biopsy was negative for any signs of cancer. 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 She also has a history of Sjorgen-Marina syndrome. Na was then referred to medical oncology for management of her breast cancer. we recommended that she pursue dose dense Adriamycin Cytoxan for 4 cycles followed by weekly Taxol for 12 weeks. She has had placement of a Port-A-Cath by Dr. Arevalo and had echocardiogram on 12/09/2017. The echo reports normal LV size and systolic function with no regional wall motion abnormalities. Her EF is estimated at 65%. She began her first cycle of Adriamycin Cytoxan on 01/09/2018. She completed 4 cycles of AC on 02/27/2018.and completed weekly taxol x12 On 06/15/2018 Started on tamoxifen 20 mg daily Underwent bilateral oophorectomy on 04/24/2019 and also discontinued tamoxifen week before. Started on Arimidex 1 mg daily on 05/24/2019 Follow-up mammogram done on February 25, 2020 was BI-RADS 2, benign Patient was complaining of neck , lower back and anterior chest wall pain so bone scan done on July 16, 2020 which showed focal areas of increased uptake in the lumbar spine at L2 and L3, and the cervical spine on the left at C5-6 are probably all degenerative and related to facet joint arthritis and spondylosis and plain x-ray cervical spine done on July 16, 2020 when compared with a bone scan showed degenerative facet joint arthritis on the left at L5-6 and plain x-ray lumbar spine done on same date when compared with bone scan shows mild left convex curvature at lumbar spine changes consistent with probably degenerative, no osteolytic disease seen. But focal intermediate uptake in the upper sternal body, highly suspicious for metastatic disease so patient had chest x-ray done on July 16, 2020 which showed sclerotic changes in the anterior adjacent L2 and L3 vertebral body probably degenerative related but no abnormality seen in the sternum as per discussion with Dr. Gaston, radiologist Bone scan done on September 15, 2020 shows focal uptake in sternal manubrial junction is unchanged compared to previous and indeterminant. Punctate focus of activity involving left approximately C5 facet unchanged likely degenerative. Degenerative uptake in lower lumbar spine. No significant change Chest x-ray done on September 15, 2020 shows no acute cardiopulmonary changes no abnormal bone lesion Came for follow-up, denies any specific complaints, no fever chills, no nausea or vomiting, no diarrhea constipation anterior chest wall discomfort has improved, occasionally hot flashes otherwise tolerating Arimidex well Medications: Anastrozole 1 Tablet (of 1 mg) Oral daily, Calcium Tablet Oral, Cholecalciferol Tablet Oral, Claritin 1 Tablet (of 10 mg) Oral daily, LORazepam 0.5 - 1 (1 mg) Tablet Oral four times a day PRN, Multivitamin Adult Tablet Oral, Vitamin E 1 Capsule Oral daily Allergies: No Known Allergies. Review of Systems: Review of Systems is not available for this patient. Vital Signs: Performed on Sep 25, 2020 10:07 Height - 61.00 in Weight - 162.6 lbs (HIGH) BSA - 1.73 sq.m BMI - 30.72 (HIGH) Temperature - 98.1 F (LOW) Pulse - 96 /min Respiration - 18 /min BP - 128/82 mm(hg) O2 Sat - 99 % Pain - 0 Performance Status: 1 - No physically strenuous activity, but ambulatory and able to carry out light or sedentary work (e.g. office work, light house work). (ECOG) Physical Examination: Respiratory - Lungs are clear to auscultation, Cardiovascular - Regular rate and rhythm of heart, Gastrointestinal - Soft, bowel sounds present, Extremities - No visible edema. Lab/Imaging: Test performed on Sep 24, 2020 09:12 Sodium 140 mmol/L Potassium 3.8 mmol/L Chloride 102 mmol/L CO2 22 mmol/L Anion Gap 19.8 BUN 15 mg/dL Creatinine 0.5 mg/dL Cr Clearance (Est) 175.8900 mL/min eGFR 137.4 mL/min Glucose 80 mg/dL Osmolality - Calculated 290 mOsm/kg Calcium 10.3 mg/dL Protein, Total 7.8 g/dL Albumin 4.4 g/dL Globulin 3.4 g/dL Bilirubin, Total 0.4 mg/dL ALT (SGPT) 31 Units/L AST (SGOT) 23 Units/L Alkaline Phosphatase 92 IU/L WBC 7.8 10^3/uL RBC 4.87 10^6/uL HGB 14.7 g/dL HCT 45.3 % MCV 93 fl MCH 30.2 pg MCHC 32.5 g/dL RDW 12.3 % Platelet Count 353 10^3/uL MPV 11.5 fl Neutrophils 60.6 10^3/uL Lymphocytes 28.3 10^3/uL Monocytes 6.5 10^3/uL Eosinophils 3.0 10^3/uL Basophils 1.3 10^3/uL Neutrophil % 4.71 % Lymphocyte % 2.2 % Monocyte % 0.5 % Eosinophil % 0.2 % Basophils % 0.1 % Impression: Status post right simple mastectomy, right sentinel axillary lymph node biopsy done on 11/17/2017 final pathology report showed 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 Fernandez radiation oncology. She has had a venous access device [place]valo [place] [place]. Ms Tse began cycle of chemotherapy on 01/09/2018. She completed her fourth cycle of Adriamycin & cyclophosphamide on 02/27/2018. She was transitioned to weekly Taxol x 12 weeks which she completed on 06/15/18 . started on Tamoxifen 20 mg po qd on 06/22/18 Patient underwent bilateral oophorectomy on 04/24/2019 and tamoxifen was discontinued week before and return started on Arimidex 1 mg by mouth daily on 05/24/2019 follow-up bone scan done on September 15, 2020 shows degenerative changes, chest x-ray shows no bony abnormality Plan: Discussed with patient regarding her labs white blood count 7.8 hemoglobin 14.7 hematocrit 45.3 platelets 353,000 CMP within normal limits Clinically, patient doing well with no new signs symptoms history of disease progression, tolerating Arimidex well, her bone scan and chest x-ray done for her off and on sternal pain/discomfort and bone scan shows some degenerative changes and chest x-ray shows no bone abnormality. Patient will continue with Arimidex along with vitamin D and calcium return to clinic in 4 months with CBC CMP Signed By: Jorge Willingham M.D. <<Signature on File>>
== END 2020-09-25 09:22 | disposition home or self-care (01) ==
PROVIDERS: PCP Nurse Practitioner Family; Visit Provider Internal Medicine Hematology & Oncology
DX: C50.411 Malignant neoplasm of upper-outer quadrant of right female breast (principal); Z17.0 Estrogen receptor positive status [ER+]; D70.1 Agranulocytosis secondary to cancer chemotherapy; T45.1X5A Adverse effect of antineoplastic and immunosuppressive drugs, initial encounter; E55.9 Vitamin D deficiency, unspecified; E83.51 Hypocalcemia; Q87.19 Other congenital malformation syndromes predominantly associated with short stature; Z90.11 Acquired absence of right breast and nipple; Z79.811 Long term (current) use of aromatase inhibitors
CPT/HCPCS: 96523; 99214

== ENCOUNTER 2020-10-24 05:55 | Outpatient (CLI) | payer MEDICARE, MEDICAID, SELFPAY | END 2020-10-24 05:56 | disposition home or self-care (01) | LOC: ONCMED 06:01 | PROVIDERS: PCP Nurse Practitioner Family; Visit Provider Nurse Practitioner | DX: Z45.2 Encounter for adjustment and management of vascular access device (principal) | CPT/HCPCS: 96523 ==

== ENCOUNTER 2020-11-28 09:23 | Outpatient (CLI) | payer MEDICARE, MEDICAID, SELFPAY | END 2020-11-28 09:24 | disposition home or self-care (01) | LOC: ONCMED 09:24 | PROVIDERS: PCP Nurse Practitioner Family; Visit Provider Internal Medicine Hematology & Oncology | DX: Z45.2 Encounter for adjustment and management of vascular access device (principal) | CPT/HCPCS: 96523 ==

== ENCOUNTER 2020-12-26 09:15 | Outpatient (CLI) | payer MEDICARE, MEDICAID, SELFPAY | END 2020-12-26 09:16 | disposition home or self-care (01) | LOC: ONCMED 09:18 | PROVIDERS: PCP Nurse Practitioner Family; Visit Provider Internal Medicine Hematology & Oncology | DX: Z45.2 Encounter for adjustment and management of vascular access device (principal) | CPT/HCPCS: 96523 ==

== ENCOUNTER → 2021-01-23 08:33 | Outpatient (BNVA) | payer MEDICARE, MEDICAID, SELFPAY | PROVIDERS: PCP Nurse Practitioner Family; Visit Provider Internal Medicine Hematology & Oncology | DX: C50.111 Malignant neoplasm of central portion of right female breast (principal) | CPT/HCPCS: 80053; 85025 ==

== ENCOUNTER 2021-01-26 08:56 | Outpatient (CLI) | payer MEDICARE, MEDICAID, SELFPAY ==
--- NOTE | 2021-01-26 09:45 | ONC FU_ITS ---
Dr. Willingham follow up note Patient: Na Tse Unit #: [id number]: 1980 Dicatated By: Jorge Willingham M.D.Date of Visit:Jan 26, 2021 Onc Med Follow-up/Prog Note History of Present Illness: Ms Tse is a 40-year-old female with history of right breast inflammatory process underwent right nipple areolar complex excision [place] [address] Arevalo. She presented to her primary care physician in June with a breast mass on self-examination. It has been there for proximally a couple of months. An antibiotic was tried but she had no significant improvement. She was then referred to Dr. Arevalo. She states that the mass that had no pain or drainage. She did have ultrasound that showed a hypoechoic shadowing mass measuring a little under an inch in diameter. It was initially thought this might be infected sebaceous cyst. Dr. Arevalo did recommend doing a biopsy of the area. She underwent biopsy of the right breast mass on 11/03/2017. 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 It was then recommended that she undergo right breast aN did have right, simple mastectomy with sentinel lymph node biopsy on 11/17/2017. The pathology on the mastectomy reported infiltrating ductal carcinoma with the site of invasive component of 4 x 3 cm. Histological grade was 2 of 3 Donna score was 7 of 9. There is no significant DCIS component. Is reported that the margins were clear. Her Ki 6-7 analysis was 53% ER was positive MT was positive HER-2/zan by IHC was 1+ which was negative by IHC and over application by FISH. It was noted that the tumor was infiltrating papillary dermis and within dermal lymphatics. The 2 lymph nodes for senna lymph node biopsy was negative for any signs of cancer. 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 She also has a history of Sjorgen-Marina syndrome. Na was then referred to medical oncology for management of her breast cancer. we recommended that she pursue dose dense Adriamycin Cytoxan for 4 cycles followed by weekly Taxol for 12 weeks. She has had placement of a Port-A-Cath by Dr. Arevalo and had echocardiogram on 12/09/2017. The echo reports normal LV size and systolic function with no regional wall motion abnormalities. Her EF is estimated at 65%. She began her first cycle of Adriamycin Cytoxan on 01/09/2018. She completed 4 cycles of AC on 02/27/2018.and completed weekly taxol x12 On 06/15/2018 Started on tamoxifen 20 mg daily Underwent bilateral oophorectomy on 04/24/2019 and also discontinued tamoxifen week before. Started on Arimidex 1 mg daily on 05/24/2019 Follow-up mammogram done on February 25, 2020 was BI-RADS 2, benign Patient was complaining of neck , lower back and anterior chest wall pain so bone scan done on July 16, 2020 which showed focal areas of increased uptake in the lumbar spine at L2 and L3, and the cervical spine on the left at C5-6 are probably all degenerative and related to facet joint arthritis and spondylosis and plain x-ray cervical spine done on July 16, 2020 when compared with a bone scan showed degenerative facet joint arthritis on the left at L5-6 and plain x-ray lumbar spine done on same date when compared with bone scan shows mild left convex curvature at lumbar spine changes consistent with probably degenerative, no osteolytic disease seen. But focal intermediate uptake in the upper sternal body, highly suspicious for metastatic disease so patient had chest x-ray done on July 16, 2020 which showed sclerotic changes in the anterior adjacent L2 and L3 vertebral body probably degenerative related but no abnormality seen in the sternum as per discussion with Dr. Gaston, radiologist Bone scan done on September 15, 2020 shows focal uptake in sternal manubrial junction is unchanged compared to previous and indeterminant. Punctate focus of activity involving left approximately C5 facet unchanged likely degenerative. Degenerative uptake in lower lumbar spine. No significant change Chest x-ray done on September 15, 2020 shows no acute cardiopulmonary changes no abnormal bone lesion Came for follow-up, denies any specific complaint except chronic lower back pain which is chronic in nature due to degenerative changes in lower lumbar spine seen on bone scan done in the past. Otherwise no new bony pains, no fever chills, no nausea or vomiting, no diarrhea or constipation, no jaundice, no shortness of breath or palpitation, tolerating Arimidex well otherwise Medications: Anastrozole 1 Tablet (of 1 mg) Oral daily, Calcium Tablet Oral, Cholecalciferol Tablet Oral, Claritin 1 Tablet (of 10 mg) Oral daily, LORazepam 0.5 - 1 (1 mg) Tablet Oral four times a day PRN, Multivitamin Adult Tablet Oral, Vitamin E 1 Capsule Oral daily Allergies: No Known Allergies. Review of Systems: Review of Systems is not available for this patient. Vital Signs: Vitals are not available for this patient. Performance Status: 0 - Fully active, able to carry on all predisease activities without restrictions. (ECOG) Physical Examination: Respiratory - Lungs are clear to auscultation, Cardiovascular - Regular rate and rhythm of heart, Gastrointestinal - Bowel sounds present nontender, Extremities - No visible edema. Lab/Imaging: Test performed on Jan 23, 2021 08:33 Sodium 139 mmol/L Potassium 4.0 mmol/L Chloride 101 mmol/L CO2 26 mmol/L Anion Gap 16 BUN 13 mg/dL Creatinine 0.6 mg/dL Cr Clearance (Est) 146.57 mL/min eGFR 111.3 mL/min Glucose 92 mg/dL Osmolality - Calculated 288 mOsm/kg Calcium 9.9 mg/dL Protein, Total 7.4 g/dL Albumin 4.3 g/dL Globulin 3.1 g/dL Bilirubin, Total 0.3 mg/dL ALT (SGPT) 29 Units/L AST (SGOT) 21 Units/L Alkaline Phosphatase 92 IU/L WBC 8.5 10^3/uL RBC 4.89 10^6/uL HGB 14.7 g/dL HCT 46.0 % MCV 94.1 fl MCH 30.1 pg MCHC 32.0 g/dL RDW 12.4 % Platelet Count 312 10^3/uL MPV 11.47 fl Neutrophils 5.47 10^3/uL Lymphocytes 2.1 10^3/uL Monocytes 0.5 10^3/uL Eosinophils 0.3 10^3/uL Basophils 0.1 10^3/uL Neutrophil % 64.5 % Lymphocyte % 24.9 % Monocyte % 5.9 % Eosinophil % 3.2 % Basophils % 1.3 % NRBC 0.0 /100 WBC NRBC % 0 % Impression: Status post right simple mastectomy, right sentinel axillary lymph node biopsy done on 11/17/2017 final pathology report showed 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 Fernandez radiation oncology. She has had a venous access device placed per Dr Arevalo ([facility] [place]) on 12/29/2017. Ms Tse began cycle of chemotherapy on 01/09/2018. She completed her fourth cycle of Adriamycin & cyclophosphamide on 02/27/2018. She was transitioned to weekly Taxol x 12 weeks which she completed on 06/15/18 . started on Tamoxifen 20 mg po qd on 06/22/18 Patient underwent bilateral oophorectomy on 04/24/2019 and tamoxifen was discontinued week before and return started on Arimidex 1 mg by mouth daily on 05/24/2019 follow-up bone scan done on September 15, 2020 shows degenerative changes, chest x-ray shows no bony abnormality Plan: Discussed with patient regarding her labs white blood count 8.5 hemoglobin 14.7 hematocrit 46 platelets 312,000 CMP within normal limits Clinically, patient is doing well with no adjuvant Arimidex well, will continue and then patient return to clinic in 4 months with CBC CMP and follow-up mammogram in the meantime we will continue monthly port flush Signed By: Jorge Willingham M.D. <<Signature on File>>
== END 2021-01-26 08:57 | disposition home or self-care (01) ==
LOC: ONCMED 08:58
PROVIDERS: PCP Nurse Practitioner Family; Visit Provider Internal Medicine Hematology & Oncology
DX: Z08 Encounter for follow-up examination after completed treatment for malignant neoplasm (principal); Z85.3 Personal history of malignant neoplasm of breast; M47.896 Other spondylosis, lumbar region; Z90.11 Acquired absence of right breast and nipple; Z79.899 Other long term (current) drug therapy
CPT/HCPCS: 96523; 99214

== ENCOUNTER 2021-02-27 08:26 | Outpatient (CLI) | payer MEDICARE, MEDICAID, SELFPAY | END 2021-02-27 08:27 | disposition home or self-care (01) | LOC: ONCMED 08:29 | PROVIDERS: PCP Nurse Practitioner Family; Visit Provider Internal Medicine Hematology & Oncology | DX: Z45.2 Encounter for adjustment and management of vascular access device (principal) | CPT/HCPCS: 96523 ==

== ENCOUNTER 2021-03-26 09:22 | Outpatient (CLI) | payer MEDICARE, MEDICAID, SELFPAY | END 2021-03-26 09:23 | disposition home or self-care (01) | LOC: ONCMED 09:25 | PROVIDERS: PCP Nurse Practitioner Family; Visit Provider Internal Medicine Hematology & Oncology | DX: Z45.2 Encounter for adjustment and management of vascular access device (principal) | CPT/HCPCS: 96523 ==

== ENCOUNTER 2021-04-20 08:42 | Outpatient (CLI) | payer MEDICARE, MEDICAID, SELFPAY ==
--- NOTE | 2021-04-20 08:48 | MM_ITS ---
WS: [id number] LEFT DIGITAL MAMMOGRAPHY WITH CAD CLINICAL INFORMATION: HX OF BREAST CA COMPARISON: February 25, 2020 TECHNIQUE: 4 views of the left breast were obtained. FINDINGS: The left breast is composed of heterogeneous fibroglandular density tissue, which can limit the detec tion of small underlying mass lesions. Stable punctate and clustered calcifications. No suspicious focal mass, asymmetry, calcifications, or architectural distortion. No evidence of mia gnancy. MM/[place] [id number] IMPRESSION: BI-RADS: 2-Benign FOLLOW UP: 1 Year Follow-up Recommend return to annual diagnostic mammography.
== END 2021-04-20 08:43 | disposition home or self-care (01) ==
LOC: RADSHAW 08:44
PROVIDERS: PCP Nurse Practitioner Family; Visit Provider Internal Medicine Hematology & Oncology
DX: Z85.3 Personal history of malignant neoplasm of breast (principal)
CPT/HCPCS: 77065

== ENCOUNTER 2021-04-24 09:26 | Outpatient (CLI) | payer MEDICARE, MEDICAID, SELFPAY ==
[2021-04-24] MEDS: alteplase 1 mg/mL SDV 2 mL 2 MG IV (10:20)
== END 2021-04-24 09:27 | disposition home or self-care (01) ==
PROVIDERS: PCP Nurse Practitioner Family; Visit Provider Internal Medicine Hematology & Oncology
DX: C50.811 Malignant neoplasm of overlapping sites of right female breast (principal); Z17.0 Estrogen receptor positive status [ER+]; Z90.11 Acquired absence of right breast and nipple; Z79.899 Other long term (current) drug therapy
CPT/HCPCS: 36593; 96374; J2997

== ENCOUNTER → 2021-05-21 08:18 | Outpatient (BNVA) | payer MEDICARE, MEDICAID, SELFPAY | PROVIDERS: PCP Nurse Practitioner Family; Visit Provider Internal Medicine Hematology & Oncology | DX: D70.1 Agranulocytosis secondary to cancer chemotherapy (principal); T45.1X5A Adverse effect of antineoplastic and immunosuppressive drugs, initial encounter | CPT/HCPCS: 80053; 85025 ==

== ENCOUNTER 2021-05-26 08:11 | Outpatient (CLI) | payer MEDICARE, MEDICAID, SELFPAY ==
--- NOTE | 2021-05-26 16:28 | ONC FU_ITS ---
Dr. Willingham follow up note Patient: Na Tse Unit #: [id number]: 1980 Dicatated By: Jorge Willingham M.D.Date of Visit:May 26, 2021 Onc Med Follow-up/Prog Note History of Present Illness: Ms Tse is a 40-year-old female with history of right breast inflammatory process underwent right nipple areolar complex excision [place] [address] Arevalo. She presented to her primary care physician in June with a breast mass on self-examination. It has been there for proximally a couple of months. An antibiotic was tried but she had no significant improvement. She was then referred to Dr. Arevalo. She states that the mass that had no pain or drainage. She did have ultrasound that showed a hypoechoic shadowing mass measuring a little under an inch in diameter. It was initially thought this might be infected sebaceous cyst. Dr. Arevalo did recommend doing a biopsy of the area. She underwent biopsy of the right breast mass on 11/03/2017. 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 It was then recommended that she undergo right breast Na did have right, simple mastectomy with sentinel lymph node biopsy on 11/17/2017. The pathology on the mastectomy reported infiltrating ductal carcinoma with the site of invasive component of 4 x 3 cm. Histological grade was 2 of 3 Donna score was 7 of 9. There is no significant DCIS component. Is reported that the margins were clear. Her Ki 6-7 analysis was 53% ER was positive IL was positive HER-2/zan by IHC was 1+ which was negative by IHC and over application by FISH. It was noted that the tumor was infiltrating papillary dermis and within dermal lymphatics. The 2 lymph nodes for senna lymph node biopsy was negative for any signs of cancer. 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 She also has a history of Sjorgen-Marina syndrome. Na was then referred to medical oncology for management of her breast cancer. we recommended that she pursue dose dense Adriamycin Cytoxan for 4 cycles followed by weekly Taxol for 12 weeks. She has had placement of a Port-A-Cath by Dr. Arevalo and had echocardiogram on 12/09/2017. The echo reports normal LV size and systolic function with no regional wall motion abnormalities. Her EF is estimated at 65%. She began her first cycle of Adriamycin Cytoxan on 01/09/2018. She completed 4 cycles of AC on 02/27/2018.and completed weekly taxol x12 On 06/15/2018 Started on tamoxifen 20 mg daily Underwent bilateral oophorectomy on 04/24/2019 and also discontinued tamoxifen week before. Started on Arimidex 1 mg daily on 05/24/2019 Follow-up mammogram done on February 25, 2020 was BI-RADS 2, benign Patient was complaining of neck , lower back and anterior chest wall pain so bone scan done on July 16, 2020 which showed focal areas of increased uptake in the lumbar spine at L2 and L3, and the cervical spine on the left at C5-6 are probably all degenerative and related to facet joint arthritis and spondylosis and plain x-ray cervical spine done on July 16, 2020 when compared with a bone scan showed degenerative facet joint arthritis on the left at L5-6 and plain x-ray lumbar spine done on same date when compared with bone scan shows mild left convex curvature at lumbar spine changes consistent with probably degenerative, no osteolytic disease seen. But focal intermediate uptake in the upper sternal body, highly suspicious for metastatic disease so patient had chest x-ray done on July 16, 2020 which showed sclerotic changes in the anterior adjacent L2 and L3 vertebral body probably degenerative related but no abnormality seen in the sternum as per discussion with Dr. Gaston, radiologist Bone scan done on September 15, 2020 shows focal uptake in sternal manubrial junction is unchanged compared to previous and indeterminant. Punctate focus of activity involving left approximately C5 facet unchanged likely degenerative. Degenerative uptake in lower lumbar spine. No significant change Chest x-ray done on September 15, 2020 shows no acute cardiopulmonary changes no abnormal bone lesion Came for follow-up, denies any specific complaint except right subaxillary chest wall discomfort, as per patient and her mother, she may have pulled her muscle while getting off the truck, patient denies any trauma to the chest wall otherwise denies any overlying skin changes, denies any shortness of breath or fever chills, denies any cough, denies any hemoptysis hematemesis denies any nausea or vomiting as per patient her pain is getting better somewhat. Otherwise tolerating Arimidex well Medications: Anastrozole 1 Tablet (of 1 mg) Oral daily, Calcium Tablet Oral, Cholecalciferol Tablet Oral, Claritin 1 Tablet (of 10 mg) Oral daily, LORazepam 0.5 - 1 (1 mg) Tablet Oral four times a day PRN, Multivitamin Adult Tablet Oral, Vitamin E 1 Capsule Oral daily Allergies: No Known Allergies. Review of Systems: Review of Systems is not available for this patient. Vital Signs: Performed on May 26, 2021 08:29 Height - 61.00 in Weight - 157.6 lbs (LOW) BSA - 1.71 sq.m BMI - 29.78 Temperature - 99.1 F (HIGH) Pulse - 112 /min (HIGH) Respiration - 18 /min BP - 135/84 mm(hg) O2 Sat - 98 % Pain - 5 Fatigue - 3 Performance Status: 0 - Fully active, able to carry on all predisease activities without restrictions. (ECOG) Physical Examination: Respiratory - Lungs are clear to auscultation, Cardiovascular - Regular rate and rhythm of heart, Chest - Mild tenderness in the right subaxillary area but no overlying skin changes no definite mass palpable, Gastrointestinal - Soft, bowel sounds present, Extremities - No visible edema. Lab/Imaging: Test performed on May 21, 2021 08:18 Glucose 86 mg/dL BUN 10 mg/dL Creatinine 0.5 mg/dL Cr Clearance (Est) 174.37 mL/min Sodium 141 mmol/L Potassium 4.1 mmol/L Chloride 101 mmol/L CO2 25 mmol/L Calcium 10.2 mg/dL Protein, Total 7.4 g/dL Albumin 4.4 g/dL Globulin 3.0 g/dL Bilirubin, Total 0.4 mg/dL Alkaline Phosphatase 91 International Units/L AST (SGOT) 21 International Units/L ALT (SGPT) 24 International Units/L WBC 8.6 10^9/L RBC 4.84 10^12/L HGB 14.8 g/dL HCT 45.3 % MCV 93.6 fl MCH 30.6 pg MCHC 32.7 g/dL RDW 12.4 % Platelet Count 338 10^9/L MPV 11.4 fL Neutrophils (Gran) 4.94 10^9/L Lymphocytes 2.6402 10^9/L Monocytes 0.5848 10^9/L Eosinophils 0.2752 10^9/L Basophils 0.1204 10^9/L NRBCs 0.0 /100 WBC Test performed on Jan 23, 2021 08:33 Anion Gap 16 eGFR 111.3 mL/min Osmolality - Calculated 288 mOsm/kg Neutrophil % 64.5 % Lymphocyte % 24.9 % Monocyte % 5.9 % Eosinophil % 3.2 % Basophils % 1.3 % NRBC % 0 % Impression: Status post right simple mastectomy, right sentinel axillary lymph node biopsy done on 11/17/2017 final pathology report showed 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 Fernandez radiation oncology. She has had a venous access device placed per Dr Arevalo ([facility] [place]) on 12/29/2017. Ms Tse began cycle of chemotherapy on 01/09/2018. She completed her fourth cycle of Adriamycin & cyclophosphamide on 02/27/2018. She was transitioned to weekly Taxol x 12 weeks which she completed on 06/15/18 . started on Tamoxifen 20 mg po qd on 06/22/18 Patient underwent bilateral oophorectomy on 04/24/2019 and tamoxifen was discontinued week before and return started on Arimidex 1 mg by mouth daily on 05/24/2019 follow-up bone scan done on September 15, 2020 shows degenerative changes, chest x-ray shows no bony abnormality Follow-up mammogram done on April 20, 2021 shows BI-RADS 2 Plan: Discussed with patient regarding her labs white blood count 8.6 hemoglobin 14.8 hematocrit 45.3 platelets 338,000 CMP within normal limits Clinically, patient doing well with no new signs symptoms suggestive of disease progression, her right chest wall pain could be multifactorial probably musculoskeletal, as per mother it happened when patient tried to get off track, she may have pulled her muscle. As her pain is improving, she was advised to use muscle relaxant cream or heating pad, moreover her lab work-up is within normal range including alkaline phosphatase if there is no improvement or worsening of right chest wall pain, will consider further investigation otherwise she will continue with a daily Arimidex along with vitamin D and calcium and return to clinic in 6 months and her follow-up mammogram done recently shows benign findings. Signed By: Jorge Willingham M.D. <<Signature on File>>
== END 2021-05-26 08:12 | disposition home or self-care (01) ==
LOC: ONCMED 08:13
PROVIDERS: PCP Nurse Practitioner Family; Visit Provider Internal Medicine Hematology & Oncology
DX: C50.811 Malignant neoplasm of overlapping sites of right female breast (principal); Z17.0 Estrogen receptor positive status [ER+]; Z90.11 Acquired absence of right breast and nipple; Q87.19 Other congenital malformation syndromes predominantly associated with short stature; Z79.811 Long term (current) use of aromatase inhibitors; Z92.21 Personal history of antineoplastic chemotherapy
CPT/HCPCS: 96523; 99214

== ENCOUNTER 2021-06-23 08:29 | Outpatient (CLI) | payer MEDICARE, MEDICAID, SELFPAY | END 2021-06-23 08:30 | disposition home or self-care (01) | PROVIDERS: PCP Nurse Practitioner Family; Visit Provider Internal Medicine Hematology & Oncology | DX: Z45.2 Encounter for adjustment and management of vascular access device (principal) | CPT/HCPCS: 96523 ==

== ENCOUNTER 2021-07-24 09:04 | Outpatient (CLI) | payer MEDICARE, MEDICAID, SELFPAY | END 2021-07-24 09:05 | disposition home or self-care (01) | LOC: ONCMED 09:07 | PROVIDERS: PCP Nurse Practitioner Family; Visit Provider Internal Medicine Hematology & Oncology | DX: Z85.3 Personal history of malignant neoplasm of breast (principal) | CPT/HCPCS: 96523 ==

== ENCOUNTER 2021-08-25 08:28 | Outpatient (CLI) | payer MEDICARE, MEDICAID, SELFPAY ==
[2021-08-26] MEDS: alteplase 1 mg/mL SDV 2 mL 2 MG IV (08:55)
== END 2021-08-25 08:29 | disposition home or self-care (01) ==
LOC: ONCMED 08:33
PROVIDERS: PCP Nurse Practitioner Family; Visit Provider Internal Medicine Hematology & Oncology
DX: C50.411 Malignant neoplasm of upper-outer quadrant of right female breast (principal); Z17.0 Estrogen receptor positive status [ER+]; D70.1 Agranulocytosis secondary to cancer chemotherapy; T45.1X5A Adverse effect of antineoplastic and immunosuppressive drugs, initial encounter; Z79.899 Other long term (current) drug therapy
CPT/HCPCS: 36593; 96374; J2997

== ENCOUNTER 2021-08-25 09:07 | Emergency (ER) | payer MEDICARE, MEDICAID, SELFPAY ==
[2021-08-25 09:23] VITALS: BP 128/88; PULSE 111; RESP 14; TEMP 36.8; O2SAT 96; BMI 30.2
--- NOTE | 2021-08-25 09:31 | PC.NURSE ---
PATIENT GIVEN TYLENOL THIS MORNING FOR HER PAIN.
--- NOTE | 2021-08-25 09:35 | ED_ITS ---
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 She uses forearm crutches to ambulate. Fall occurred last night. She was ambulating in her house and tripped over a blanket causing her to fall and hit left side of face and head. Denies any loss of consciousness, headache or any new neurological symptoms. She is complaining of having left maxillary face pain and swelling. Denies any vision changes. Pain rated a 10 out of 10. Associated symptoms-after fall: Denies abdominal pain, chest pain, headache(s), hematuria or neck pain Review of Systems Const: Denies: fever(s), chills or fatigue Eyes: Denies: change in vision or eye discomfort ENMT: Reports: sinus pain (Left maxillary pain and swelling.); Denies: throat pain, odynophagia, nasal discharge or nasal congestion Card: Denies: chest pain, palpitations, edema, swelling of feet/ankles, dyspnea on exertion or orthopnea Resp: Denies: dyspnea, productive cough or non-productive cough GI: Denies: abdominal pain, nausea, vomiting, diarrhea, constipation or hematochezia : Denies: flank pain, dysuria or hematuria Musc: Denies: neck pain, back pain or extremity swelling Skin/Breast: Denies: rash or new lesions Neuro: Denies: headache(s), numbness in extremities or weakness in extremities PFS ED PFSH: Medical History No pertinent family history Sjogren-Marina syndrome Physical Exam Const: COMMON NORMALS: no acute distress, patient oriented x3 and alert EXAM LIMITATIONS: other limitations (Mentally challenged) GENERAL APPEARANCE: cooperative and comfortable HENMT: COMMON NORMALS: normocephalic HEAD & SCALP: normocephalic FACE & SINUS: edema on the left maxilla and Facial tenderness on exam of face and sinuses on the left periorbital (inferior aspect) and maxilla MOUTH: Normal oral and palatal mucosa present THROAT: posterior oropharynx normal and uvula midline Eye: COMMON NORMALS: Equal, round and reactive pupils present, EOMs intact bilaterally and conjunctivae normal PERIORBITAL: periorbital findings abnormal positive left periorbital swelling (inferior), periorbital tenderness (inferior) and periorbital ecchymosis (inferior) CONJUNCTIVA: Yes conjunctiv ae normal PUPIL: Yes Equal, round and reactive pupils present Neck/C-Spine: COMMON NORMALS: supple GENERAL: Yes normal visual inspection Resp: COMMON NORMALS: normal respiratory effort, No retractions, No use of accessory muscles and clear to auscultation bilaterally AUSCULTATION: clear to auscultation bilaterally Cardio: COMMON NORMALS: regular rate, regular rhythm, S1 normal heart sound present, S2 normal heart sound present, No gallops present (Cardio), No clicks present (Cardio), No murmurs present (Cardio) and Peripheral pulses 2+ throughout RATE: regular rate RHYTHM: regular rhythm HEART SOUNDS: S1 normal heart sound present and S2 normal heart sound present PERIPHERAL PULSES: Peripheral pulses 2+ throughout GI: COMMON NORMALS: Normal to inspection, nondistended, normoactive bowel sounds present, Soft to palpation, non-tender and no masses PALPATION: Yes Soft to palpation : COMMON NORMALS: Yes no CVA tenderness BLADDER/KIDNEY EXAM: Yes no CVA tenderness Back/Pelvis: COMMON NORMALS: no CVA tenderness Extremity: COMMON NORMALS: normal to inspection Neuro: COMMON NORMALS: patient oriented x3, CN's II-XII intact bilaterally, moves all extremities, no focal motor deficits and no sensory deficits noted SENSORIUM/ORIENTATION: Yes alert SENSORY EXAM: Yes extremities (intact) MOTOR EXAM: 5/5 motor strength present throughout Skin: GENERAL SKIN EXAM: dry skin Course Vital Signs: Vital signs: Vital Signs Temperature 98.3 F 08/25/21 09:23 Pulse Rate 81 08/25/21 11:35 Respiratory Rate 14 08/25/21 11:35 Blood Pressure 127/85 08/25/21 11:35 Pulse Oximetry 100 08/25/21 11:35 MDM - Fall Medical Decision Making Patient is a 5-year-old female comes to the ED after having a fall at home. Patient fell and hit left side of face. Vitals stable. She has some left maxillary pain, swelling and ecchymosis. Neurological exam normal. CT of head showed no acute findings. CT of face showed left maxillary sinus lateral and anterior wall fracture. No significant depression and left orbit appears intact. Patient was given some hydrocodone for pain here in the ED. I placed an order with case management for patient to be referred to ENT doctor. Patient was discharged home with some hydrocodone and told about sinus precautions. Return to ED precautions given. Patient understood and agree with plan. Lab Data Radiology Impressions Face CT 08/25/21 09:43 IMPRESSION: 1. Slightly comminuted fractures involving the anterior and lateral russell of the maxillary sinus. No significant depression. Small amount of fluid in the LEFT maxillary sinus. 2. LEFT orbit appears intact. 3. Subcutaneous edema and air overlying the LEFT facial soft tissues. 4. No other visualized facial fractures. Notified JERSEY Galindo at 08/25/2021 10:[address] 08/25/21 09:43 IMPRESSION: 1. No evidence of intracranial hemorrhage or mass effect 2. No acute intracranial findings. Discharge Plan Discharge Patient Disposition: Home Clinical Impression: Maxillary sinus fracture Qualifiers: Encounter type: initial encounter Fracture type: closed Qualified Code(s): S02.401A - Maxillary fracture, unspecified side, initial encounter for closed fracture Condition: Stable Discharge Orders: Discharge ED (Routine); Ordered 08/25/21 Ordered By: Tapan Forrester Referrals: Maryam Rodriguez FNP-C [Primary Care Provider] - Discharge Diet: Advance as tolerated Discharge Activity: Increase activity as tolerated Patient Instructions: Facial Fracture (ED), Opioid Safety Activity Restrictions/Additional Instructions: Follow-up with medical provider as directed. Case management should be contacting you in the next several days set up an appointment with ENT doctor for further evaluation. take medications as prescribed. Return to the ER or your medical provider if condition worsens. Please read and understand discharge instructions. Thank you for choosing [facility] for your healthcare needs today. Please realize this is an emergency room and that we are providing you with a medical screening exam and this may not be complete and all inclusive of all the testing and or work up that you may need to determine your ailment or severity of your illness. It is very important that you follow up as instructed or that you return to the Emergency Department should you have concerns or if your condition changes or worsens in any way. Coding Level of Care Code ED Human Performance Technologist for Chg Fwd Exam Comprehensive Documented by User: Franklin Rome DO 08/25/21 16:42 HPI - Fall General: Chief Complaint: Fall Stated Complaint: Fell and hit her head last night Time Seen by Provider: 08/25/21 09:10 [facility] ED PFSH: Medical History No pertinent family history Sjogren-Marina syndrome Course Vital Signs: Vital signs: Vital Signs Temperature 98.3 F 08/25/21 09:23 Pulse Rate 81 08/25/21 11:35 Respiratory Rate 14 08/25/21 11:35 Blood Pressure 127/85 08/25/21 11:35 Pulse Oximetry 100 08/25/21 11:35 MDM - Fall Medical Decision Making Patient is a 5-year-old female comes to the ED after having a fall at home. Patient fell and hit left side of face. Vitals stable. She has some left maxillary pain, swelling and ecchymosis. Neurological exam normal. CT of head showed no acute findings. CT of face showed left maxillary sinus lateral and anterior wall fracture. No significant depression and left orbit appears intact. Patient was given some hydrocodone for pain here in the ED. I placed an order with case management for patient to be referred to ENT doctor. Patient was discharged home with some hydrocodone and told about sinus precautions. Return to ED precautions given. Patient understood and agree with plan. Chart reviewed and patient discussed with midlevel. Agree with assessment and plan. Lab Data Radiology Impressions Face CT 08/25/21 09:43 IMPRESSION: 1. Slightly comminuted fractures involving the anterior and lateral russell of the maxillary sinus. No significant depression. Small amount of fluid in the LEFT maxillary sinus. 2. LEFT orbit appears intact. 3. Subcutaneous edema and air overlying the LEFT facial soft tissues. 4. No other visualized facial fractures. Notified JERSEY Galindo at 08/25/2021 10:[address] 08/25/21 09:43 IMPRESSION: 1. No evidence of intracranial hemorrhage or mass effect 2. No acute intracranial findings. Discharge Plan Discharge Patient Disposition: Home Clinical Impression: Maxillary sinus fracture Qualifiers: Encounter type: initial encounter Fracture type: closed Qualified Code(s): S02.401A - Maxillary fracture, unspecified side, initial encounter for closed fracture Condition: Stable Discharge Orders: Discharge ED (Routine); Ordered 08/25/21 Ordered By: Tapan Forrester Referrals: Maryam Rodriguez FNP-C [Primary Care Provider] - Discharge Diet: Advance as tolerated Discharge Activity: Increase activity as tolerated Patient Instructions: Facial Fracture (ED), Opioid Safety Activity Restrictions/Additional Instructions: Follow-up with medical provider as directed. Case management should be contacting you in the next several days set up an appointment with ENT doctor for further evaluation. take medications as prescribed. Return to the ER or your medical provider if condition worsens. Please read and understand discharge instructions. Thank you for choosing [facility] for your healthcare needs today. Please realize this is an emergency room and that we are providing you with a medical screening exam and this may not be complete and all inclusive of all the testing and or work up that you may need to determine your ailment or severity of your illness. It is very important that you follow up as instructed or that you return to the Emergency Department should you have concerns or if your condition changes or worsens in any way. Coding Level of Care Code ED Human Performance Technologist for Billy Landa Exam Comprehensive
--- NOTE | 2021-08-25 09:43 | CT_ITS ---
WS: [id number] CT HEAD TECHNIQUE: Noncontrast CT of the head obtained from the skullbase to the vertex. CLINICAL INFORMATION: fall hit head and face. no LOC COMPARISON: None. DLP: 832.[address] scans at [facility] use at least one of these dose optimization techniques: automated e xposure control; mA and/or kV adjustment per patient size (includes targeted exams where dose is matc hed to clinical indication); or iterative reconstruction. FINDINGS: No evidence of intracranial hemorrhage or mass effect. Ventricular system and basal cisterns are acosta nt. No extra-axial fluid collections. No evidence of mass or mass effect. Normal winters-white different iation. Paranasal sinuses and mastoid air cells are well aerated. .Normal visualized soft tissues. CT/CT head wo con* [id number] IMPRESSION: 1. No evidence of intracranial hemorrhage or mass effect 2. No acute intracranial findings.
--- NOTE | 2021-08-25 09:43 | CT_ITS ---
WS: [id number] CT FACIAL BONES TECHNIQUE: Noncontrast facial bones with coronal and sagittal reformatted images. CLINICAL INFORMATION: fall, hit left side face. maxillary pain, bruising, swelling COMPARISON: None. DLP: 653.[address] scans at [facility] use at least one of these dose optimization techniques: automated e xposure control; mA and/or kV adjustment per patient size (includes targeted exams where dose is matc hed to clinical indication); or iterative reconstruction. FINDINGS: Slightly comminuted fracture involving the anterior and lateral wall of the LEFT maxillary sinus. No significant depression. Associated subcutaneous air in the overlying soft tissues. Small amount of fl uid in the LEFT maxillary sinus. Orbit appears intact. Normal lamina papyracea. Normal lateral orbit. Normal zygoma. Anterior nasal bones are normal. Normal pterygoid plates. Mastoid air cells well aerated. Normal para pharyngeal fat. Visualized posterior nasopharynx is normal. Normal upper cervical spine. No evidence of mandibular fracture dislocation. CT/CT facial bones wo con* [id number] IMPRESSION: 1. Slightly comminuted fractures involving the anterior and lateral russell of t he maxillary sinus. No significant depression. Small amount of fluid in the LEF T maxillary sinus. 2. LEFT orbit appears intact. 3. Subcutaneous edema and air overlying the LEFT facial soft tissues. 4. No other visualized facial fractures. Notified JERSEY Galindo at 08/25/2021 10:57 AM.
[2021-08-25] MEDS: HYDROcodone-acetaminophen 5-325 mg Tablet 1 TAB PO (09:49)
--- NOTE | 2021-08-25 10:03 | PC.NURSE ---
PATIENT RESTING IN CHAIR, NAD.
[2021-08-25 11:35] VITALS: BP 127/85; PULSE 81; RESP 14; O2SAT 100
--- NOTE | 2021-08-26 07:58 | DCPLANNER ---
Addendum entered by Alma Rucker 10/02/21 11:53: Patient had a follow up appointment scheduled for 09.07.21 with ENT - patient did attend appointment. Addendum entered by Alma Rucker 08/28/21 14:27: Patient has a follow up appointment scheduled for Tuesday, September 07, 2021 at 8:[address] Bunn. Clinic will call patient with appointment information. Original Note: cyber security manager had message to schedule a follow up appointment for patient with ENT. cyber security manager emailed patients information to Benita Taveras and Hannah at [facility] General Surgery / ENT clinic for review. Patients information will be printed and reviewed. Clinic will call patient with appointment information.
== END 2021-08-25 11:36 | disposition home or self-care (01) ==
PROVIDERS: Emergency Provider Physician Assistant; PCP Nurse Practitioner Family
DX: S02.401A Maxillary fracture, unspecified side, initial encounter for closed fracture (principal); Q87.19 Other congenital malformation syndromes predominantly associated with short stature; W18.09XA Striking against other object with subsequent fall, initial encounter
CPT/HCPCS: 70450; 70486; 99283

== ENCOUNTER 2021-09-22 08:30 | Outpatient (CLI) | payer MEDICARE, MEDICAID, SELFPAY | END 2021-09-22 08:31 | disposition home or self-care (01) | PROVIDERS: PCP Nurse Practitioner Family; Visit Provider Internal Medicine Hematology & Oncology | DX: Z45.2 Encounter for adjustment and management of vascular access device (principal) | CPT/HCPCS: 96523 ==

== ENCOUNTER 2021-10-22 08:53 | Outpatient (CLI) | payer MEDICARE, MEDICAID, SELFPAY ==
[2021-10-22] MEDS: alteplase 1 mg/mL SDV 2 mL 2 MG IV (09:20)
== END 2021-10-22 08:54 | disposition home or self-care (01) ==
PROVIDERS: PCP Nurse Practitioner Family; Visit Provider Internal Medicine Hematology & Oncology
DX: C50.411 Malignant neoplasm of upper-outer quadrant of right female breast (principal); Z17.0 Estrogen receptor positive status [ER+]; D70.1 Agranulocytosis secondary to cancer chemotherapy; T45.1X5A Adverse effect of antineoplastic and immunosuppressive drugs, initial encounter; Z79.899 Other long term (current) drug therapy
CPT/HCPCS: 36591; 36593; 96523; J2997

== ENCOUNTER 2021-11-20 08:47 | Oncology outpatient (recurring) (ONCR) | payer MEDICARE, MEDICAID, SELFPAY ==
[2021-11-20 09:00] VITALS: BP 124/79; PULSE 98; RESP 18; TEMP 36.2; O2SAT 99
== END 2021-12-08 23:59 | disposition home or self-care (01) ==
LOC: ONCMED 08:49
PROVIDERS: PCP Nurse Practitioner Family; Visit Provider Internal Medicine Hematology & Oncology
DX: Z45.2 Encounter for adjustment and management of vascular access device (principal)
CPT/HCPCS: 96523

== ENCOUNTER → 2021-12-14 08:50 | Outpatient (BNVA) | payer MEDICARE, MEDICAID, SELFPAY | PROVIDERS: PCP Nurse Practitioner Family; Visit Provider Nurse Practitioner Family | DX: C50.411 Malignant neoplasm of upper-outer quadrant of right female breast (principal); D70.1 Agranulocytosis secondary to cancer chemotherapy; T45.1X5A Adverse effect of antineoplastic and immunosuppressive drugs, initial encounter; Z90.11 Acquired absence of right breast and nipple | CPT/HCPCS: 80053; 85025 ==

== ENCOUNTER 2021-12-17 12:13 | Oncology outpatient (recurring) (ONCR) | payer MEDICARE, MEDICAID, SELFPAY | END 2021-12-17 23:59 | disposition home or self-care (01) | PROVIDERS: PCP Nurse Practitioner Family; Visit Provider Internal Medicine Hematology & Oncology | DX: C50.411 Malignant neoplasm of upper-outer quadrant of right female breast (principal); Z17.0 Estrogen receptor positive status [ER+]; D70.1 Agranulocytosis secondary to cancer chemotherapy; T45.1X5A Adverse effect of antineoplastic and immunosuppressive drugs, initial encounter; Z79.818 Long term (current) use of other agents affecting estrogen receptors and estrogen levels; Z90.11 Acquired absence of right breast and nipple | CPT/HCPCS: 96523; 99214 ==

== ENCOUNTER 2022-01-19 09:56 | Oncology outpatient (recurring) (ONCR) | payer MEDICARE, MEDICAID, SELFPAY ==
[2022-01-19 10:12] VITALS: BMI 27.0
== END 2022-02-07 23:59 | disposition home or self-care (01) ==
PROVIDERS: PCP Nurse Practitioner Family; Visit Provider Internal Medicine Hematology & Oncology
DX: D70.1 Agranulocytosis secondary to cancer chemotherapy (principal); C50.911 Malignant neoplasm of unspecified site of right female breast
CPT/HCPCS: 36591

== ENCOUNTER 2022-02-16 08:56 | Oncology outpatient (recurring) (ONCR) | payer MEDICARE, MEDICAID, SELFPAY ==
[2022-02-16 09:13] VITALS: BP 121/84; PULSE 95; RESP 18; TEMP 36.6; O2SAT 97
== END 2022-03-10 23:59 | disposition home or self-care (01) ==
PROVIDERS: PCP Nurse Practitioner Family; Visit Provider Internal Medicine Hematology & Oncology
DX: Z45.2 Encounter for adjustment and management of vascular access device (principal)
CPT/HCPCS: 96523

== ENCOUNTER 2022-03-23 08:57 | Oncology outpatient (recurring) (ONCR) | payer MEDICARE, MEDICAID, SELFPAY | END 2022-04-09 23:59 | disposition home or self-care (01) | PROVIDERS: PCP Nurse Practitioner Family; Visit Provider Internal Medicine Hematology & Oncology | DX: Z45.2 Encounter for adjustment and management of vascular access device (principal) | CPT/HCPCS: 96523 ==

== ENCOUNTER 2022-04-20 08:50 | Oncology outpatient (recurring) (ONCR) | payer MEDICARE, MEDICAID, SELFPAY ==
[2022-04-20 09:00] VITALS: BP 121/64; PULSE 78; RESP 18; TEMP 36.6; O2SAT 99
[2022-04-20] MEDS: alteplase 1 mg/mL SDV 2 mL 2 MG INTRACATH (09:10)
== END 2022-05-10 23:59 | disposition home or self-care (01) ==
PROVIDERS: PCP Nurse Practitioner Family; Visit Provider Internal Medicine Hematology & Oncology
DX: C50.411 Malignant neoplasm of upper-outer quadrant of right female breast (principal); Z17.0 Estrogen receptor positive status [ER+]; D70.1 Agranulocytosis secondary to cancer chemotherapy; T45.1X5A Adverse effect of antineoplastic and immunosuppressive drugs, initial encounter; Z79.899 Other long term (current) drug therapy; Z45.2 Encounter for adjustment and management of vascular access device
CPT/HCPCS: 36593; 96523; J2997

== ENCOUNTER 2022-05-04 10:07 | Outpatient (CLI) | payer MEDICARE, MEDICAID, SELFPAY ==
--- NOTE | 2022-05-04 10:27 | MM_ITS ---
WS: [id number] DIAGNOSTIC LEFT DIGITAL TOMOSYNTHESIS MAMMOGRAPHY WITH CAD. HISTORY: Follow up;Hx of breast ca COMPARISON: 04/20/2021, 02/25/2020 and 10/17/2017 Technique: CC, MLO and ML views. Breast composition: The breasts are heterogeneously dense, which may obscure small masses. Benign ca lcifications posterior LEFT breast just medial to the nipple line. No increase in number of calcifica tions. No mass or distortion. MM/[place] [id number] IMPRESSION: BI-RADS: 2-Benign FOLLOW UP: 1 Year Follow-up
== END 2022-05-04 10:08 | disposition home or self-care (01) ==
LOC: RAD 10:08
PROVIDERS: PCP Nurse Practitioner Family; Visit Provider Internal Medicine Hematology & Oncology
DX: Z85.3 Personal history of malignant neoplasm of breast (principal)
CPT/HCPCS: 77061

== ENCOUNTER 2022-05-25 08:58 | Oncology outpatient (recurring) (ONCR) | payer MEDICARE, MEDICAID, SELFPAY ==
[2022-05-25 09:00] VITALS: BP 120/74; PULSE 67; RESP 18; TEMP 36.6; O2SAT 98
== END 2022-06-09 23:59 | disposition home or self-care (01) ==
LOC: ONCMED 08:59
PROVIDERS: PCP Nurse Practitioner Family; Visit Provider Internal Medicine Hematology & Oncology
DX: Z45.2 Encounter for adjustment and management of vascular access device (principal)
CPT/HCPCS: 96523

== ENCOUNTER → 2022-06-15 08:47 | Outpatient (BNVA) | payer MEDICARE, MEDICAID, SELFPAY | PROVIDERS: PCP Nurse Practitioner Family; Referring Provider Internal Medicine Hematology & Oncology; Visit Provider Internal Medicine Hematology & Oncology | DX: C50.911 Malignant neoplasm of unspecified site of right female breast (principal) | CPT/HCPCS: 80053; 85025 ==

== ENCOUNTER 2022-06-18 11:04 | Oncology outpatient (recurring) (ONCR) | payer MEDICARE, MEDICAID, SELFPAY | END 2022-07-10 23:59 | disposition home or self-care (01) | PROVIDERS: PCP Nurse Practitioner Family; Visit Provider Internal Medicine Hematology & Oncology | DX: Z45.2 Encounter for adjustment and management of vascular access device (principal); C50.911 Malignant neoplasm of unspecified site of right female breast; Z90.11 Acquired absence of right breast and nipple; Z92.21 Personal history of antineoplastic chemotherapy; Z79.811 Long term (current) use of aromatase inhibitors; F41.9 Anxiety disorder, unspecified | CPT/HCPCS: 96523; 99214 ==

== ENCOUNTER 2022-07-23 08:41 | Oncology outpatient (recurring) (ONCR) | payer MEDICARE, MEDICAID, SELFPAY | END 2022-08-10 23:59 | disposition home or self-care (01) | PROVIDERS: PCP Nurse Practitioner Family; Visit Provider Internal Medicine Hematology & Oncology | DX: Z45.2 Encounter for adjustment and management of vascular access device; Z95.828 Presence of other vascular implants and grafts | CPT/HCPCS: 96523 ==

== ENCOUNTER 2022-08-27 08:58 | Oncology outpatient (recurring) (ONCR) | payer MEDICARE, MEDICAID, SELFPAY | END 2022-09-07 23:59 | disposition home or self-care (01) | LOC: ONCMED 08:58 | PROVIDERS: PCP Nurse Practitioner Family; Visit Provider Internal Medicine Hematology & Oncology | DX: Z45.2 Encounter for adjustment and management of vascular access device; Z95.828 Presence of other vascular implants and grafts; C50.911 Malignant neoplasm of unspecified site of right female breast | CPT/HCPCS: 96523 ==

== ENCOUNTER 2022-09-24 08:52 | Oncology outpatient (recurring) (ONCR) | payer MEDICARE, MEDICAID, SELFPAY | END 2022-10-08 23:59 | disposition home or self-care (01) | LOC: ONCMED 08:53 | PROVIDERS: PCP Nurse Practitioner Family; Visit Provider Internal Medicine Hematology & Oncology | DX: Z45.2 Encounter for adjustment and management of vascular access device | CPT/HCPCS: 96523 ==

== ENCOUNTER 2022-10-22 08:51 | Oncology outpatient (recurring) (ONCR) | payer MEDICARE, MEDICAID, SELFPAY ==
[2022-10-22 09:21] VITALS: BP 131/83; PULSE 86; RESP 16; TEMP 36.7; O2SAT 99
== END 2022-11-07 23:59 | disposition home or self-care (01) ==
LOC: ONCMED 08:52
PROVIDERS: PCP Nurse Practitioner Family; Visit Provider Internal Medicine Hematology & Oncology
DX: Z45.2 Encounter for adjustment and management of vascular access device
CPT/HCPCS: 96523

== ENCOUNTER 2022-11-25 08:42 | Oncology outpatient (recurring) (ONCR) | payer MEDICARE, MEDICAID, SELFPAY ==
[2022-11-25 09:12] VITALS: BP 116/77; PULSE 84; RESP 18; TEMP 37.6; O2SAT 97
== END 2022-12-08 23:59 | disposition home or self-care (01) ==
PROVIDERS: PCP Nurse Practitioner Family; Visit Provider Internal Medicine Hematology & Oncology
DX: Z45.2 Encounter for adjustment and management of vascular access device (principal)
CPT/HCPCS: 96523; J1642

== ENCOUNTER → 2022-12-22 08:44 | Outpatient (BNVA) | payer MEDICARE, MEDICAID, SELFPAY | PROVIDERS: PCP Nurse Practitioner Family; Visit Provider Nurse Practitioner Family | DX: C50.911 Malignant neoplasm of unspecified site of right female breast (principal) | CPT/HCPCS: 80053; 85025 ==

== ENCOUNTER 2023-01-03 09:24 | Oncology outpatient (recurring) (ONCR) | payer MEDICARE, MEDICAID, SELFPAY | END 2023-01-07 23:59 | disposition home or self-care (01) | PROVIDERS: PCP Nurse Practitioner Family; Visit Provider Internal Medicine Hematology & Oncology | DX: C50.811 Malignant neoplasm of overlapping sites of right female breast (principal); Z17.0 Estrogen receptor positive status [ER+]; Z90.11 Acquired absence of right breast and nipple; Z79.811 Long term (current) use of aromatase inhibitors; R21 Rash and other nonspecific skin eruption; Z79.52 Long term (current) use of systemic steroids; Z79.2 Long term (current) use of antibiotics | CPT/HCPCS: 99214 ==

== ENCOUNTER 2023-01-21 08:53 | Oncology outpatient (recurring) (ONCR) | payer MEDICARE, MEDICAID, SELFPAY ==
[2023-01-21 09:17] VITALS: BP 113/77; PULSE 77; RESP 18; TEMP 37.1; O2SAT 98
== END 2023-02-07 23:59 | disposition home or self-care (01) ==
PROVIDERS: PCP Nurse Practitioner Family; Visit Provider Internal Medicine Hematology & Oncology
DX: Z45.2 Encounter for adjustment and management of vascular access device (principal)
CPT/HCPCS: 96523; J1642

== ENCOUNTER 2023-02-18 08:58 | Oncology outpatient (recurring) (ONCR) | payer MEDICARE, MEDICAID, SELFPAY ==
[2023-02-18 09:02] VITALS: BP 130/86; PULSE 80; RESP 18; TEMP 37.3; O2SAT 98
== END 2023-03-10 23:59 | disposition home or self-care (01) ==
PROVIDERS: PCP Nurse Practitioner Family; Visit Provider Internal Medicine Hematology & Oncology
DX: Z45.2 Encounter for adjustment and management of vascular access device (principal); C50.911 Malignant neoplasm of unspecified site of right female breast
CPT/HCPCS: 96523; J1642

== ENCOUNTER 2023-03-18 09:08 | Oncology outpatient (recurring) (ONCR) | payer MEDICARE, MEDICAID, SELFPAY ==
[2023-03-18 09:23] VITALS: BP 126/83; PULSE 78; RESP 17; TEMP 36.6; O2SAT 96
[2023-03-18] MEDS: alteplase 1 mg/mL SDV 2 mL 2 MG INTRACATH (10:19)
== END 2023-04-09 23:59 | disposition home or self-care (01) ==
PROVIDERS: PCP Nurse Practitioner Family; Visit Provider Internal Medicine Medical Oncology
DX: Z45.2 Encounter for adjustment and management of vascular access device (principal)
CPT/HCPCS: 36593; J1642; J2997

== ENCOUNTER 2023-04-26 09:00 | Outpatient (CLI) | payer MEDICARE, MEDICAID, SELFPAY ==
--- NOTE | 2023-04-26 09:09 | MM_ITS ---
WS: [id number] DIAGNOSTIC DIGITAL TOMOSYNTHESIS MAMMOGRAPHY WITH CAD. HISTORY: ANNUAL - HX BR CA COMPARISON: 05/04/2022 and 04/20/2021 Technique: CC, MLO and ML views. Breast composition: The breasts are heterogeneously dense, which may obscure small masses. New calcif ications in the posterior LEFT breast at the level of the nipple. These are not definitely visualized on the CC projection due to their posterior position. IMPRESSION: MM/[place] [id number] BI-RADS: 0-Incomplete: Need additional imaging evaluation FOLLOW UP: Need Additional Imaging LEFT BREAST: Magnification views of suspicious calcification CC and MLO. Exagge rated medial and lateral cc views. True ML.
== END 2023-04-26 09:01 | disposition home or self-care (01) ==
PROVIDERS: PCP Nurse Practitioner Family; Visit Provider Internal Medicine Hematology & Oncology
DX: Z85.3 Personal history of malignant neoplasm of breast (principal)
CPT/HCPCS: 77061; G0279

== ENCOUNTER → 2023-04-28 09:57 | Outpatient (BNVA) | payer MEDICARE, MEDICAID, SELFPAY | PROVIDERS: PCP Nurse Practitioner Family; Visit Provider Internal Medicine Medical Oncology | DX: C50.911 Malignant neoplasm of unspecified site of right female breast (principal); S02.40DA Maxillary fracture, left side, initial encounter for closed fracture; X58.XXXA Exposure to other specified factors, initial encounter | CPT/HCPCS: 80053; 85025 ==

== ENCOUNTER 2023-05-04 08:49 | Oncology outpatient (recurring) (ONCR) | payer MEDICARE, MEDICAID, SELFPAY ==
[2023-05-04 10:10] VITALS: BP 114/78; PULSE 78; RESP 18; TEMP 36.6; O2SAT 98
== END 2023-05-10 23:59 | disposition home or self-care (01) ==
PROVIDERS: PCP Nurse Practitioner Family; Visit Provider Internal Medicine Medical Oncology
DX: Z45.2 Encounter for adjustment and management of vascular access device (principal); C50.811 Malignant neoplasm of overlapping sites of right female breast; M85.80 Other specified disorders of bone density and structure, unspecified site; Z79.899 Other long term (current) drug therapy; Z17.0 Estrogen receptor positive status [ER+]
CPT/HCPCS: 99213; J1642

== ENCOUNTER 2023-05-17 12:38 | Outpatient (CLI) | payer MEDICARE, MEDICAID, SELFPAY ==
--- NOTE | 2023-05-17 13:14 | MM_ITS ---
WS: [id number] DIGITAL LEFT DIGITAL TOMOSYNTHESIS MAMMOGRAPHY WITH CAD. HISTORY: Magnification views calcifications LEFT breast. COMPARISON: 04/26/2023, 05/04/2022 Technique: CC, MLO and ML views. Magnification views LEFT CC and MLO Breast composition: The breasts are heterogeneously dense, which may obscure small masses. Calcificat ions are difficult to include due to patient's body habitus and posterior position of these calcifica tions. Calcifications appear very coarse and are less clustered on the follow-up imaging. IMPRESSION: MM/[place] [id number] BI-RADS: 3-Probably Benign FOLLOW UP: 6 Month Follow-up LEFT breast diagnostic mammogram in 6 months with magnification views of the ca lcifications.
== END 2023-05-17 12:39 | disposition home or self-care (01) ==
LOC: RAD 12:38
PROVIDERS: PCP Nurse Practitioner Family; Visit Provider Internal Medicine Medical Oncology
DX: C50.911 Malignant neoplasm of unspecified site of right female breast (principal); R92.1 Mammographic calcification found on diagnostic imaging of breast
CPT/HCPCS: 77061; G0279

== ENCOUNTER 2023-05-24 12:39 | Outpatient (CLI) | payer MEDICARE, MEDICAID, SELFPAY ==
--- NOTE | 2023-05-24 13:00 | XR_ITS ---
WS: [id number] SCREENING DEXA SCAN [email or web address] CLINICAL INFORMATION: history of breast cancer with AI use. COMPARISON: None. FINDINGS: The L1-L4 bone mineral density measures . This corresponds to a T score score of and Z score of . Left femoral neck bone mineral density measures 0.931 g/cm2. This corresponds to a T score of -0.6 an d Z score of -0.3. Right femoral neck bone mineral density measures 0.892 g/cm2. This corresponds to a T score -0.9of an d Z score of -0.6. Mean femoral neck bone mineral density measures 0.912 g/cm2. This corresponds to a T score of -0.8 an d Z score of -0.5. IMPRESSION: Normal bone mineralization. Patient's FRAX calculated 10 year probability for major osteoporotic fracture is 4.1% and osteoporoti c hip fracture is 0.2%.
== END 2023-05-24 12:40 | disposition home or self-care (01) ==
LOC: RAD 12:40
PROVIDERS: PCP Nurse Practitioner Family; Visit Provider Nurse Practitioner Family
DX: C50.911 Malignant neoplasm of unspecified site of right female breast (principal); Z79.811 Long term (current) use of aromatase inhibitors
CPT/HCPCS: 77080

== ENCOUNTER 2023-06-08 08:26 | Oncology outpatient (recurring) (ONCR) | payer MEDICARE, MEDICAID, SELFPAY ==
[2023-06-08 08:25] VITALS: BP 123/90; PULSE 85; RESP 17; TEMP 36.6; O2SAT 99
== END 2023-06-09 23:59 | disposition home or self-care (01) ==
LOC: ONCMED 08:26
PROVIDERS: PCP Nurse Practitioner Family; Visit Provider Internal Medicine Medical Oncology
DX: Z45.2 Encounter for adjustment and management of vascular access device (principal)
CPT/HCPCS: 96523; J1642

== ENCOUNTER 2023-07-06 08:35 | Oncology outpatient (recurring) (ONCR) | payer MEDICARE, MEDICAID, SELFPAY ==
[2023-07-06 08:55] VITALS: BP 124/78; BP 126/79; PULSE 82; RESP 18; TEMP 37.2; O2SAT 100
== END 2023-07-10 23:59 | disposition home or self-care (01) ==
PROVIDERS: PCP Nurse Practitioner Family; Visit Provider Internal Medicine Medical Oncology
DX: Z45.2 Encounter for adjustment and management of vascular access device (principal)
CPT/HCPCS: 96523; J1642

== ENCOUNTER 2023-08-03 10:27 | Oncology outpatient (recurring) (ONCR) | payer MEDICARE, MEDICAID, SELFPAY | END 2023-08-10 23:59 | disposition home or self-care (01) | LOC: ONCMED 10:29 | PROVIDERS: PCP Nurse Practitioner Family; Visit Provider Internal Medicine Medical Oncology | DX: Z45.2 Encounter for adjustment and management of vascular access device (principal) | CPT/HCPCS: 96523; J1642 ==

== ENCOUNTER 2023-08-31 08:20 | Oncology outpatient (recurring) (ONCR) | payer MEDICARE, MEDICAID, SELFPAY | END 2023-09-08 23:59 | disposition home or self-care (01) | PROVIDERS: PCP Nurse Practitioner Family; Visit Provider Internal Medicine Medical Oncology | DX: Z45.2 Encounter for adjustment and management of vascular access device (principal) | CPT/HCPCS: J1642 ==

== ENCOUNTER 2023-11-03 08:23 | Oncology outpatient (recurring) (ONCR) | payer MEDICARE, MEDICAID, SELFPAY | END 2023-11-08 23:59 | disposition home or self-care (01) | LOC: ONCMED 08:24 | PROVIDERS: PCP Nurse Practitioner Family; Visit Provider Internal Medicine Medical Oncology | DX: C50.911 Malignant neoplasm of unspecified site of right female breast (principal); Z79.811 Long term (current) use of aromatase inhibitors ==